=== PATIENT | male | born 1960 | race Caucasian/White ===

== ENCOUNTER 2017-07-19 18:36 | Emergency (ER) | payer OTHER, MEDICARE ==
[2017-07-19 18:36] VITALS: BMI 31.0
[2017-07-19] MEDS ORDERED: Aspirin 325 mg EC Tablets PO STA (19:15)
--- NOTE | 2017-07-19 19:15 | C.PDOC ---
History Of Present Illness 57 year old male non insulin dependent diabetic presents to the ED c/o intermittent, on and off chest pain that started on Wednesday. Patient is speaking in full sentences. Patient denies fever, chills, nausea, vomit, SOB, palpitations. Time Seen by Provider: 07/19/17 19:14 Chief Complaint (Nursing): Chest Pain History Per: Patient History/Exam Limitations: no limitations Onset/Duration Of Symptoms: Days, Intermittent Episodes Current Symptoms Are (Timing): Still Present Severity: Mild Pain Scale Rating Of: 2 Quality: Dull Associated Symptoms: denies: Nausea, Dyspnea, Diaphoresis, Syncope Modifying Factors: None Exacerbating Factors: None Alleviating Factors: None Recent travel outside of the [place]: No Additional History Per: Patient Past Medical History Reviewed: Historical Data, Nursing Documentation, Vital Signs Vital Signs: Last Vital Signs Temp 99.3 F 07/19/17 18:42 Pulse 86 07/19/17 19:32 Resp 16 07/19/17 18:42 BP 175/84 H 07/19/17 18:42 Pulse Ox 99 07/19/17 20:03 - Medical History PMH: Diabetes (non insulin dependent ), HTN, Hypercholesterolemia, Peripheral Edema, Chronic Kidney Disease Surgical History: CABG - [facility] Procedures CYSTOSCOPY NEC (05/09/14) RETROGRADE PYELOGRAM (05/09/14) Family History: States: No Known Family Hx - Social History Hx Alcohol Use: Yes Hx Substance Use: No - Immunization History Hx Tetanus Toxoid Vaccination: No Hx Influenza Vaccination: No Hx Pneumococcal Vaccination: No Review Of Systems Constitutional: Negative for: Fever, Chills Cardiovascular: Positive for: Chest Pain. Negative for: Palpitations Respiratory: Negative for: Shortness of Breath Gastrointestinal: Negative for: Nausea, Vomiting Genitourinary: Negative for: Dysuria Musculoskeletal: Negative for: Back Pain Skin: Negative for: Rash Neurological: Negative for: Headache, Dizziness Psych: Negative for: Anxiety Physical Exam - Physical Exam Appears: Non-toxic, No Acute Distress, Other (obese) Skin: Warm, Dry Head: Normacephalic Eye(s): bilateral: Normal Inspection Oral Mucosa: Moist Neck: Supple Chest: Symmetrical, Other (cabg) Cardiovascular: Rhythm Regular Respiratory: No Rales, No Rhonchi, No Wheezing Gastrointestinal/Abdominal: Soft, No Tenderness, No Guarding, No Rebound, Other (obese) Back: Normal Inspection Extremity: No Tenderness, Pedal Edema (trace bilateral), Capillary Refill (< 2 seconds) Extremity: Bilateral: Atraumatic, Normal Color And Temperature, Normal ROM Pulses: Left Dorsalis Pedis: Normal, Right Dorsalis Pedis: Normal Neurological/Psych: Oriented x3, Normal Speech Gait: Steady ED Course And Treatment - Laboratory Results Result Diagrams: 07/19/17 19:24 07/19/17 19:24 ECG: Interpreted By Me, Viewed By Me ECG Rhythm: Sinus Rhythm (103), Nonspecific Changes (lae) O2 Sat by Pulse Oximetry: 99 (ON RA) Pulse Ox Interpretation: Normal - Radiology CXR Interpretation: No: Infiltrates, Fracture, Pnemothorax, Other (cabg) Progress Note: Plan: - EKG. - Labs. - CXR. - Ecotrin 325 mg PO. - UA Against Medical Advice - AMA Patient Left Against Medical Advice: The patient declines admission to the hospital and wishes to leave the Emergency Department. This action is against my medical advice. This decision was made with informed refusal. The patient was told that admission to the hospital is necessary. Explanation of the reasons why were discussed. The risks of leaving were explained to the patient and include, but are not limited to, worsening of known or currently unknown conditions, permanent disability and from undiagnosed or untreated conditions. The patient has the capacity to make this informed decision and understands my explanation of the current medical problem and risks of leaving. The patient voluntarily accepts these risks and signed an AMA form documenting our conversation. The patient was given the opportunity to ask questions and reconsider. The patient was encouraged to return to the Emergency Department at any time for further care. Disposition Counseled Patient/Family Regarding: Studies Performed, Diagnosis, Need For Followup - Disposition Referrals: Helene Green MD [Medical Doctor] - Disposition: AGAINST MEDICAL ADVICE Disposition Time: 19:14 Condition: FAIR Additional Instructions: Please return if symptoms recur Instructions: Chest Pain (DC) Forms: [employer] (Croatian) - Clinical Impression Clinical Impression: Chest pain - Scribe Statement The provider has reviewed the documentation as recorded by the Scribe Don Callejas All medical record entries made by the Scribe were at my direction and personally dictated by me. I have reviewed the chart and agree that the record accurately reflects my personal performance of the history, physical exam, medical decision making, and the department course for this patient. I have also personally directed, reviewed, and agree with the discharge instructions and disposition.
[2017-07-19] MEDS ORDERED: Aspirin 325 mg EC Tablets PO ONE (19:22)
[2017-07-19 19:27] LABS: BASO # 0.1 K/uL (0.0-0.2); BASO % 1.4 % (0.0-2.0); EOS # 0.1 K/uL (0.0-0.7); EOS % 2.2 % (0.0-4.0); HEMOGLOBIN 14.9 g/dL (12.0-18.0); LYMPH # 1.3 K/uL (1.0-4.3); LYMPH % 25.6 % (20.0-40.0); MEAN CORPUSCULAR HEMOGLOBIN 38.3 pg (27.0-31.0); MEAN CORPUSCULAR HGB CONC 34.8 g/dL (33.0-37.0); MEAN PLATELET VOLUME 9.3 fL (7.2-11.7); MONO # 0.5 K/uL (0.0-0.8); MONO % 9.4 % (0.0-10.0); NEUT # 3.2 K/uL (1.8-7.0); NEUT % 61.4 % (50.0-75.0); NRBC % 0.1 % (0.0-2.0); RBC 3.89 Mil/uL (4.40-5.90); RED CELL DISTRIBUTION WIDTH 14.3 % (11.5-14.5); WHITE BLOOD COUNT 5.2 K/uL (4.8-10.8)
[2017-07-19 19:31] LABS: MEAN CELL VOLUME 110.1 fL (80.0-94.0)
[2017-07-19 19:42] LABS: ALBUMIN 4.1 g/dL (3.5-5.0); ALT/SGPT 48 U/L (21-72); AST/SGOT 76 U/L (17-59); BLOOD UREA NITROGEN 19 mg/dL (9-20); GFR AFRICAN-AMERICAN > 60; GFR NON-AFRICAN AMERICAN > 60
[2017-07-19 19:51] LABS: B-TYPE NATRIURETIC PEPTIDE 367 pg/mL (0-900)
[2017-07-19 19:55] LABS: URINE BACTERIA OCC (<OCC); URINE BILIRUBIN NEGATIVE (NEGATIVE); URINE CLARITY Clear (Clear); URINE COLOR Yellow (YELLOW); URINE GLUCOSE (UA) 1+ mg/dL (Normal); URINE LEUKOCYTE ESTERASE NEG Leu/uL (Negative); URINE PROTEIN 3+ mg/dL (NEGATIVE); URINE UROBILINOGEN NORMAL mg/dL (0.2-1.0)
[2017-07-19 19:57] LABS: URINE BLOOD 1+ (NEGATIVE)
[2017-07-19 20:07] LABS: PROTHROMBIN TIME 11.3 SECONDS (9.7-12.2)
[2017-07-19 21:08] VITALS: BP 166/87; PULSE 93; RESP 20; TEMP 98; O2SAT 97
--- NOTE | 2017-07-20 09:19 | RAD ---
Chest x-ray single frontal view History: Chest pain. Comparison: None available. Findings: Status post median sternotomy and CABG. No focal infiltrate or effusion. Top normal heart size. Biapical pleural thickening with upper lobe granulomatous changes. Right hilar prominence. Impression Status post median sternotomy and CABG. No focal infiltrate or effusion. Top normal heart size. Biapical pleural thickening with upper lobe granulomatous changes. Right hilar prominence.
--- NOTE | 2017-07-23 05:37 | CARD ---
APPROVED REPORT EKG Measurement Heart [id number] CT [id number] <Conclusion> Sinus tachycardia Left atrial enlargement Nonspecific ST abnormality Abnormal ECG
== END 2017-07-19 21:08 | disposition left against medical advice (07) ==
LOC: C.ER 18:36
DX: R07.9 Chest pain, unspecified (principal)

== ENCOUNTER 2017-12-28 11:31 | Inpatient (IN) | payer OTHER, MEDICARE ==
[2017-12-28 11:31] VITALS: BMI 31.0
--- NOTE | 2017-12-28 13:20 | C.PDOC ---
History Of Present Illness 57 yo male, hx of dm, htn, hld, presents wtih "high blood sugar", subjective dyspnea, and body aches on and off x 1 week. no fevers, no cough, no cp. no other complaints. Time Seen by Provider: 12/28/17 13:01 Chief Complaint (Nursing): Shortness Of Breath Past Medical History Reviewed: Historical Data, Nursing Documentation, Vital Signs Vital Signs: Last Vital Signs Temp 97.7 F 12/28/17 11:46 Pulse 110 H 12/28/17 11:46 Resp 22 12/28/17 11:46 BP 104/70 12/28/17 11:46 Pulse Ox 10 L 12/28/17 11:46 - Medical History PMH: Diabetes (non insulin dependent ), HTN, Hypercholesterolemia, Peripheral Edema, Chronic Kidney Disease Surgical History: CABG - [facility] Procedures CYSTOSCOPY NEC (05/09/14) RETROGRADE PYELOGRAM (05/09/14) Family History: States: Unknown Family Hx - Social History Hx Alcohol Use: Yes Hx Substance Use: No - Immunization History Hx Tetanus Toxoid Vaccination: No Hx Influenza Vaccination: No Hx Pneumococcal Vaccination: No Review Of Systems Except As Marked, All Systems Reviewed And Found Negative. Respiratory: Positive for: Shortness of Breath Physical Exam - Physical Exam Appears: Well, No Acute Distress, Other (speaking full sentneces in nad. ) Skin: Normal Color, Warm, Dry Eye(s): bilateral: Normal Inspection, PERRL, EOMI Nose: Normal Throat: Normal Neck: Normal Cardiovascular: Rhythm Regular Respiratory: Normal Breath Sounds Gastrointestinal/Abdominal: Normal Exam, Soft, No Tenderness, No Guarding, No Rebound Back: Normal Inspection Extremity: Normal ROM ED Course And Treatment - Laboratory Results Result Diagrams: 12/28/17 15:27 12/28/17 14:42 ECG: Interpreted By Me, Viewed By Me ECG Rhythm: Sinus Rhythm Interpretation Of ECG: nonspecific T wave changes Rate From EC O2 Sat by Pulse Oximetry: 100 (RA) Pulse Ox Interpretation: Normal Critical Care Time - Critical Care Note Total Time (in mins): 45 Documented critical care: time excludes all time spent performing seperately billable procedures. Medical Decision Making Medical Decision Making: ro dka, pe, cardiac, chf, metabolci pt noted to be in dka. insuling drip started ivf iniated. accepted icu. cta pending Disposition - Disposition Disposition: HOSPITALIZED Disposition Time: 13:00 Condition: CRITICAL - Clinical Impression Clinical Impression: DKA (diabetic ketoacidoses), Dyspnea Decision To Admit - Pt Status Changed To: Hospital Disposition Of: Inpatient - Admit Certification Admit to Inpatient:: After my assessment, the patient will require hospitalization for at least two midnights. This is because of the severity of symptoms shown, intensity of services needed, and/or the medical risk in this patient being treated as an outpatient. - InPatient: Physician Admission Certification: I certify that this patient requires 2 or more midnights of care for the following reason:: needs insulin drip - . Bed Request Type: ICU Admitting Physician: Eugenia Du Patient Diagnosis: DKA (diabetic ketoacidoses), Dyspnea
--- NOTE | 2017-12-28 14:00 | RAD ---
Date of service: 12/28/2017 HISTORY: chest pain COMPARISON: Comparison made with chest radiograph 07/19/2017 FINDINGS: LUNGS: Minimal scarring left medial lung base. Mild biapical pleural thickening with what could represent small of bleb right lung apex. PLEURA: No significant pleural effusion identified, no pneumothorax apparent. CARDIOVASCULAR: Suspect minimal aortic atherosclerotic calcification present. Anatomy wires and CABG clips again noted. Heart size normal.. No pulmonary vascular congestion. OSSEOUS STRUCTURES: No significant abnormalities. VISUALIZED UPPER ABDOMEN: Normal. OTHER FINDINGS: None. IMPRESSION: Minimal scarring left lung base. Mild biapical pleural thickening with what could represent small bleb right lung apex
[2017-12-28 15:09] LABS: B-TYPE NATRIURETIC PEPTIDE 841 pg/mL (0-900)
[2017-12-28 15:18] LABS: ALB/GLOB RATIO 1.3 (1.0-2.1); ALT/SGPT 47 U/L (21-72); AST/SGOT 72 U/L (17-59); BLOOD UREA NITROGEN 29 mg/dL (9-20); CALCIUM 9.5 mg/dl (8.6-10.4); GFR NON-AFRICAN AMERICAN > 60
[2017-12-28] MEDS ORDERED: Sodium Chloride 0.9% 500 ML IV ONE (15:30)
[2017-12-28] MEDS ORDERED: (Novolin R) Insulin Human Regular 100 units/ml vial IVP STA (15:30)
[2017-12-28 15:37] LABS: BASO # 0.1 K/uL (0.0-0.2); BASO % 0.8 % (0.0-2.0); EOS % 0.3 % (0.0-4.0); LYMPH # 0.6 K/uL (1.0-4.3); LYMPH % 9.1 % (20.0-40.0); MEAN CORPUSCULAR HEMOGLOBIN 41.2 pg (27.0-31.0); MEAN CORPUSCULAR HGB CONC 33.7 g/dL (33.0-37.0); MEAN PLATELET VOLUME 9.3 fL (7.2-11.7); MONO # 0.7 K/uL (0.0-0.8); MONO % 10.3 % (0.0-10.0); NEUT # 5.5 K/uL (1.8-7.0); NEUT % 79.5 % (50.0-75.0); RBC 2.92 Mil/uL (4.40-5.90); RED CELL DISTRIBUTION WIDTH 15.3 % (11.5-14.5)
[2017-12-28 15:40] LABS: MEAN CELL VOLUME 122.4 fL (80.0-94.0); PLATELET COUNT 106 K/uL (130-400)
[2017-12-28 15:47] LABS: INR 1.2; PROTHROMBIN TIME 13.1 SECONDS (9.7-12.2)
[2017-12-28 16:23] LABS: ANISOCYTOSIS SLIGHT; BASOPHIL 1 % (0-2); HYPOCHROMIC SLIGHT; LYMPHOCYTE 9 % (20-40); MONOCYTE 7 % (0-10); NEUTROPHIL 83 % (50-75); PLATELET ESTIMATE SLIGHTLY DECREASED (NORMAL); POIKILOCYTOSIS SLIGHT; TOTAL CELLS COUNTED 100
[2017-12-28 16:24] LABS: TEARDROP CELLS SLIGHT
[2017-12-28 16:27] LABS: VENOUS BLOOD GAS BASE EXCESS -13.8 mmol/L (0.0-2.0); VENOUS BLOOD GAS PCO2 27 mmHg (40-60); VENOUS BLOOD GAS PO2 32 mm/Hg (30-55); VENOUS BLOOD PH 7.25 (7.32-7.43)
[2017-12-28] MEDS ORDERED: Insulin Human Regular 100 UNIT in Sodium Chloride 0.9% 99 ML IV SCH ×2 (16:30→18:00)
[2017-12-28] MEDS ORDERED: Sodium Chloride 0.9% 1,000 ML IV ONE (16:36)
[2017-12-28] MEDS ORDERED: (Novolin R) Insulin Human Regular 100 units/ml vial ONE (16:47)
[2017-12-28] MEDS ORDERED: Iodixanol 320 MG/ML 100 ML BOTTLE IV ONE (17:55)
[2017-12-28] MEDS ORDERED: Dextrose 50% SYRINGE Inj (50 ml) IV PRN (18:20)
[2017-12-28] MEDS ORDERED: Glucagon Recombinant 1 mg Inj IM PRN (18:20)
--- NOTE | 2017-12-28 18:23 | CP.PCM.HP ---
Past Patient History - Past Medical History & Family History Past Medical History?: Yes - Past Social History Smoking Status: Heavy Smoker > 10 Cigarettes Daily - CARDIAC Hx Hypercholesterolemia: Yes Hx Hypertension: Yes Hx Peripheral Edema: Yes - PULMONARY Hx Respiratory Disorders: No - NEUROLOGICAL Hx Neurological Disorder: No - HEENT Hx HEENT Problems: No - RENAL Hx Chronic Kidney Disease: Yes - ENDOCRINE/METABOLIC Hx Endocrine Disorders: Yes Hx Diabetes Mellitus Type 2: Yes - HEMATOLOGICAL/ONCOLOGICAL Hx Blood Disorders: No - INTEGUMENTARY Hx Dermatological Problems: Yes Other/Comment: DISCOLORED SPOTS ARM LEGS - MUSCULOSKELETAL/RHEUMATOLOGICAL Hx Musculoskeletal Disorders: No - GASTROINTESTINAL Hx Gastrointestinal Disorders: No - GENITOURINARY/GYNECOLOGICAL Hx Genitourinary Disorders: Yes Hx Hematuria: Yes - PSYCHIATRIC Hx Substance Use: No - SURGICAL HISTORY Hx Coronary Artery Bypass Graft: Yes - ANESTHESIA Hx Anesthesia: Yes Hx Anesthesia Reactions: No Hx Malignant Hyperthermia: No Meds Allergies/Adverse Reactions: Allergies Allergy/AdvReac Type Severity Reaction Status Date / Time No Known Allergies Allergy Verified 07/19/17 18:44 Physical Exam - Constitutional Appears: Well - Head Exam Head Exam: ATRAUMATIC, NORMAL INSPECTION, NORMOCEPHALIC - Eye Exam Eye Exam: EOMI, Normal appearance, PERRL Pupil Exam: NORMAL ACCOMODATION, PERRL - ENT Exam ENT Exam: Mucous Membranes Moist, Normal Exam - Neck Exam Neck exam: Positive for: Normal Inspection - Respiratory Exam Respiratory Exam: Decreased Breath Sounds - Cardiovascular Exam Cardiovascular Exam: REGULAR RHYTHM, +S1, +S2 - GI/Abdominal Exam GI & Abdominal Exam: Diminished Bowel Sounds, Soft - Rectal Exam Rectal Exam: Deferred Results - Vital Signs Recent Vital Signs: Last Vital Signs Temp 97.7 F 12/28/17 11:46 Pulse 110 H 12/28/17 11:46 Resp 16 12/28/17 15:54 BP 104/70 12/28/17 11:46 Pulse Ox 10 L 12/28/17 13:20 - Labs Result Diagrams: 12/28/17 15:27 12/28/17 14:42 Labs: Laboratory Results - last 24 hr 12/28/17 12/28/17 12/28/17 14:42 15:27 15:27 WBC 7.0 RBC 2.92 L Hgb 12.0 D Hct 35.7 MCV 122.4 H D MCH 41.2 H MCHC 33.7 RDW 15.3 H Plt Count 106 L D MPV 9.3 Neut % (Auto) 79.5 H Lymph % (Auto) 9.1 L Bland % (Auto) 10.3 H Eos % (Auto) 0.3 Baso % (Auto) 0.8 Neut # (Auto) 5.5 Lymph # (Auto) 0.6 L Bland # (Auto) 0.7 Eos # (Auto) 0.0 Baso # (Auto) 0.1 Neutrophils % (Manual) 83 H Lymphocytes % (Manual) 9 L Monocytes % (Manual) 7 Basophils % (Manual) 1 Platelet Estimate Slightly decreased L Hypochromasia (manual) Slight Poikilocytosis (manual Slight Anisocytosis (manual) Slight Tear Drop Cells Slight PT 13.1 H INR 1.2 APTT 24 D-Dimer, Quantitative 491 H pO2 VBG pH VBG pCO2 VBG HCO3 VBG Total CO2 VBG O2 Sat (Calc) VBG Base Excess VBG Potassium Glucose Lactate FiO2 Crit Value Called To Crit Value Called By Crit Value Read Back Blood Gas Notified Time Sodium 135 Potassium 5.2 Chloride 95 L Carbon Dioxide 13 L Anion Gap 32 H BUN 29 H Creatinine 0.9 Est GFR ( Amer) > 60 Est GFR (Non-Af Amer) > 60 Random Glucose 424 H* D Calcium 9.5 Total Bilirubin 0.6 AST 72 H ALT 47 Alkaline Phosphatase 98 Troponin I < 0.0120 NT-Pro-B Natriuret Pep 841 Total Protein 7.2 Albumin 4.0 Globulin 3.2 Albumin/Globulin Ratio 1.3 Venous Blood Potassium B-Hydroxybutyrate 12/28/17 12/28/17 16:17 16:20 WBC RBC Hgb Hct MCV MCH MCHC RDW Plt Count MPV Neut % (Auto) Lymph % (Auto) Bland % (Auto) Eos % (Auto) Baso % (Auto) Neut # (Auto) Lymph # (Auto) Bland # (Auto) Eos # (Auto) Baso # (Auto) Neutrophils % (Manual) Lymphocytes % (Manual) Monocytes % (Manual) Basophils % (Manual) Platelet Estimate Hypochromasia (manual) Poikilocytosis (manual Anisocytosis (manual) Tear Drop Cells PT INR APTT D-Dimer, Quantitative pO2 32 VBG pH 7.25 L VBG pCO2 27 L VBG HCO3 12.9 VBG Total CO2 12.6 L VBG O2 Sat (Calc) 62.6 VBG Base Excess -13.8 L VBG Potassium 4.4 Glucose 415 H* Lactate 1.8 FiO2 21.0 Crit Value Called To Dr troy Crit Value Called By [facility] Crit Value Read Back Y Blood Gas Notified Time 1627 Sodium 136.0 Potassium Chloride 97.0 L Carbon Dioxide Anion Gap BUN Creatinine Est GFR ( Amer) Est GFR (Non-Af Amer) Random Glucose Calcium Total Bilirubin AST ALT Alkaline Phosphatase Troponin I NT-Pro-B Natriuret Pep Total Protein Albumin Globulin Albumin/Globulin Ratio Venous Blood Potassium 4.4 B-Hydroxybutyrate 7.74 H
--- NOTE | 2017-12-28 18:45 | CP.PCM.CON ---
<Megan Booker - Last Filed: 12/28/17 19:03> History of Present Illness - History of Present Illness History of Present Illness: PGY1 Critical Care Consult Note for Dr. Noel Reason for Consult: DKA This is a 57 year old male with PMH of diabetes mellitus, HTN, HLD who presents to [facility] on 12/28 with elevated blood glucose level, shortness of breath, and body aches x1 week. Patient admits to having increased frequency to urinate and more thirst. Patient also admits to taking metformin daily, but admits to inconsistently checking blood glucose at home. Patient otherwise denies fever, chills, cough, and/or chest pain. While in ED, labs were cons istent with diabetic ketoacidosis: ketones =7.74, blood glucose = 415, pH =7.25, pCO2 =27, HCO3=13 and anion gap =32. Review of Systems - Review of Systems All systems: reviewed and no additional remarkable complaints except - Constitutional Constitutional: As Per HPI - EENT Eyes: As Per HPI - Cardiovascular Cardiovascular: As Per HPI - Respiratory Respiratory: As Per HPI - Gastrointestinal Gastrointestinal: As Per HPI - Genitourinary Genitourinary: As Per HPI - Musculoskeletal Musculoskeletal: As Per HPI Past Patient History - Past Medical History & Family History Past Medical History?: Yes - Past Social History Smoking Status: Heavy Smoker > 10 Cigarettes Daily - CARDIAC Hx Hypercholesterolemia: Yes Hx Hypertension: Yes Hx Peripheral Edema: Yes - PULMONARY Hx Respiratory Disorders: No - NEUROLOGICAL Hx Neurological Disorder: No - HEENT Hx HEENT Problems: No - RENAL Hx Chronic Kidney Disease: Yes - ENDOCRINE/METABOLIC Hx Endocrine Disorders: Yes Hx Diabetes Mellitus Type 2: Yes - HEMATOLOGICAL/ONCOLOGICAL Hx Blood Disorders: No - INTEGUMENTARY Hx Dermatological Problems: Yes Other/Comment: DISCOLORED SPOTS ARM LEGS - MUSCULOSKELETAL/RHEUMATOLOGICAL Hx Musculoskeletal Disorders: No - GASTROINTESTINAL Hx Gastrointestinal Disorders: No - GENITOURINARY/GYNECOLOGICAL Hx Genitourinary Disorders: Yes Hx Hematuria: Yes - PSYCHIATRIC Hx Substance Use: No - SURGICAL HISTORY Hx Coronary Artery Bypass Graft: Yes - ANESTHESIA Hx Anesthesia: Yes Hx Anesthesia Reactions: No Hx Malignant Hyperthermia: No Meds Allergies/Adverse Reactions: Allergies Allergy/AdvReac Type Severity Reaction Status Date / Time No Known Allergies Allergy Verified 07/19/17 18:44 - Medications Medications: Current Medications Dextrose (Dextrose 50% Inj) 0 ml IV STAT PRN; Protocol PRN Reason: Hypoglycemia Protocol Dextrose (Glutose 15) 0 gm PO ONCE PRN; Protocol PRN Reason: Hypoglycemia Protocol Glucagon (Glucagen Diagnostic Kit) 0 mg IM STAT PRN; Protocol PRN Reason: Hypoglycemia Protocol Insulin Human Regular 100 unit (/ Sodium Chloride) 100 mls @ 8 mls/hr IV .[id number] MELITON; Protocol Last Admin: 12/28/17 18:07 Dose: 8 unit/hr, 8 mls/hr Potassium Chloride 20 meq/ (Sodium Chloride) 1,010 mls @ 150 mls/hr IV .Q6H44M [facility] Dextrose (Dextrose 5% In Water 1000 Ml) 1,000 mls @ 0 mls/hr IV .Q0M PRN; Protocol PRN Reason: Hypoglycemia Protocol Physical Exam - Head Exam Head Exam: ATRAUMATIC, NORMAL INSPECTION, NORMOCEPHALIC - Eye Exam Eye Exam: EOMI, Normal appearance Pupil Exam: NORMAL ACCOMODATION - ENT Exam ENT Exam: Mucous Membranes Dry - Neck Exam Neck exam: Positive for: Normal Inspection. Negative for: Tenderness, Thyromegaly - Respiratory Exam Respiratory Exam: Clear to Auscultation Bilateral, NORMAL BREATHING PATTERN - Cardiovascular Exam Cardiovascular Exam: RRR, +S1, +S2 - GI/Abdominal Exam GI & Abdominal Exam: Normal Bowel Sounds, Soft. absent: Firm, Guarding, Mass, Rebound, Rigid, Tenderness - Extremities Exam Extremities exam: Positive for: normal capillary refill, normal inspection, pedal pulses present. Negative for: calf tenderness, joint swelling, pedal edema - Back Exam Back exam: NORMAL INSPECTION - Neurological Exam Neurological exam: Alert, CN II-XII Intact, Oriented x3 - Psychiatric Exam Psychiatric exam: Normal Affect, Normal Mood - Skin Skin Exam: Dry, Intact, Normal Color Results - Vital Signs Recent Vital Signs: Last Vital Signs Temp 97.7 F 12/28/17 11:46 Pulse 110 H 12/28/17 11:46 Resp 16 12/28/17 15:54 BP 104/70 12/28/17 11:46 Pulse Ox 10 L 12/28/17 13:20 - Labs Result Diagrams: 12/28/17 15:27 12/28/17 14:42 Labs: Laboratory Results - last 24 hr 12/28/17 12/28/17 12/28/17 14:42 15:27 15:27 WBC 7.0 RBC 2.92 L Hgb 12.0 D Hct 35.7 MCV 122.4 H D MCH 41.2 H MCHC 33.7 RDW 15.3 H Plt Count 106 L D MPV 9.3 Neut % (Auto) 79.5 H Lymph % (Auto) 9.1 L Shoshone % (Auto) 10.3 H Eos % (Auto) 0.3 Baso % (Auto) 0.8 Neut # (Auto) 5.5 Lymph # (Auto) 0.6 L [place] # (Auto) 0.7 Eos # (Auto) 0.0 Baso # (Auto) 0.1 Neutrophils % (Manual) 83 H Lymphocytes % (Manual) 9 L Monocytes % (Manual) 7 Basophils % (Manual) 1 Platelet Estimate Slightly decreased L Hypochromasia (manual) Slight Poikilocytosis (manual Slight Anisocytosis (manual) Slight Tear Drop Cells Slight PT 13.1 H INR 1.2 APTT 24 D-Dimer, Quantitative 491 H pO2 VBG pH VBG pCO2 VBG HCO3 VBG Total CO2 VBG O2 Sat (Calc) VBG Base Excess VBG Potassium Glucose Lactate FiO2 Crit Value Called To Crit Value Called By Crit Value Read Back Blood Gas Notified Time Sodium 135 Potassium 5.2 Chloride 95 L Carbon Dioxide 13 L Anion Gap 32 H BUN 29 H Creatinine 0.9 Est GFR ( Amer) > 60 Est GFR (Non-Af Amer) > 60 Random Glucose 424 H* D Calcium 9.5 Total Bilirubin 0.6 AST 72 H ALT 47 Alkaline Phosphatase 98 Troponin I < 0.0120 NT-Pro-B Natriuret Pep 841 Total Protein 7.2 Albumin 4.0 Globulin 3.2 Albumin/Globulin Ratio 1.3 Venous Blood Potassium B-Hydroxybutyrate 12/28/17 12/28/17 16:17 16:20 WBC RBC Hgb Hct MCV MCH MCHC RDW Plt Count MPV Neut % (Auto) Lymph % (Auto) Shoshone % (Auto) Eos % (Auto) Baso % (Auto) Neut # (Auto) Lymph # (Auto) Shoshone # (Auto) Eos # (Auto) Baso # (Auto) Neutrophils % (Manual) Lymphocytes % (Manual) Monocytes % (Manual) Basophils % (Manual) Platelet Estimate Hypochromasia (manual) Poikilocytosis (manual Anisocytosis (manual) Tear Drop Cells PT INR APTT D-Dimer, Quantitative pO2 32 VBG pH 7.25 L VBG pCO2 27 L VBG HCO3 12.9 VBG Total CO2 12.6 L VBG O2 Sat (Calc) 62.6 VBG Base Excess -13.8 L VBG Potassium 4.4 Glucose 415 H* Lactate 1.8 FiO2 21.0 Crit Value Called To Dr troy Crit Value Called By [facility], [place], operated [facility] Crit Value Read Back Y Blood Gas Notified Time 1627 Sodium 136.0 Potassium Chloride 97.0 L Carbon Dioxide Anion Gap BUN Creatinine Est GFR ( Amer) Est GFR (Non-Af Amer) Random Glucose Calcium Total Bilirubin AST ALT Alkaline Phosphatase Troponin I NT-Pro-B Natriuret Pep Total Protein Albumin Globulin Albumin/Globulin Ratio Venous Blood Potassium 4.4 B-Hydroxybutyrate 7.74 H Assessment & Plan - Assessment and Plan (Free Text) Assessment: PGY1 Critical Care Consult Note for Dr. Noel This is a 57 year old male with PMH of diabetes mellitus, HTN, HLD who presents to [facility] on 12/28 with elevated blood glucose level, shortness of raegan th, and body aches x1 week. Patient otherwise denies fever, chills, cough, and/or chest pain. While in ED, patient was found to be positive for ketones =7.74, blood glucose = 415, pH =7.25, pCO2 =27, HCO3=13 and anion gap =32. Neuro: - No acute issues - Neuro checks CV: - No acute issues - Metal Furrer Pulm: - No acute issues GI: - No acute issues - NPO Renal/ Endo - DKA with high anion gap metabolic acidosis - BMP Q4H x24 hours - Titratable Insulin drip started with potassium supplement - Monitor blood glucose accu check - IVF Heme: - No acute issues - Monitor H/H ID: - No acute issues - Monitor CBC with Diff Patient seen and case discussed in detail with Dr. Noel <Tommy Noel - Last Filed: 12/28/17 19:25> Meds - Medications Medications: Current Medications Dextrose (Dextrose 50% Inj) 0 ml IV STAT PRN; Protocol PRN Reason: Hypoglycemia Protocol Dextrose (Glutose 15) 0 gm PO ONCE PRN; Protocol PRN Reason: Hypoglycemia Protocol Glucagon (Glucagen Diagnostic Kit) 0 mg IM STAT PRN; Protocol PRN Reason: Hypoglycemia Protocol Insulin Human Regular 100 unit (/ Sodium Chloride) 100 mls @ 8 mls/hr IV .[id number] [facility]; Protocol Last Admin: 12/28/17 18:07 Dose: 8 unit/hr, 8 mls/hr Potassium Chloride 20 meq/ (Sodium Chloride) 1,010 mls @ 150 mls/hr IV .Q6H44M [facility] Dextrose (Dextrose 5% In Water 1000 Ml) 1,000 mls @ 0 mls/hr IV .Q0M PRN; Protocol PRN Reason: Hypoglycemia Protocol Results - Vital Signs Recent Vital Signs: Last Vital Signs Temp 97.7 F 12/28/17 11:46 Pulse 110 H 12/28/17 11:46 Resp 16 12/28/17 15:54 BP 104/70 12/28/17 11:46 Pulse Ox 100 12/28/17 18:45 - Labs Result Diagrams: 12/28/17 15:27 12/28/17 14:42 Labs: Laboratory Results - last 24 hr 12/28/17 12/28/17 12/28/17 14:42 15:27 15:27 WBC 7.0 RBC 2.92 L Hgb 12.0 D Hct 35.7 MCV 122.4 H D MCH 41.2 H MCHC 33.7 RDW 15.3 H Plt Count 106 L D MPV 9.3 Neut % (Auto) 79.5 H Lymph % (Auto) 9.1 L [place] % (Auto) 10.3 H Eos % (Auto) 0.3 Baso % (Auto) 0.8 Neut # (Auto) 5.5 Lymph # (Auto) 0.6 L [place] # (Auto) 0.7 Eos # (Auto) 0.0 Baso # (Auto) 0.1 Neutrophils % (Manual) 83 H Lymphocytes % (Manual) 9 L Monocytes % (Manual) 7 Basophils % (Manual) 1 Platelet Estimate Slightly decreased L Hypochromasia (manual) Slight Poikilocytosis (manual Slight Anisocytosis (manual) Slight Tear Drop Cells Slight PT 13.1 H INR 1.2 APTT 24 D-Dimer, Quantitative 491 H pO2 VBG pH VBG pCO2 VBG HCO3 VBG Total CO2 VBG O2 Sat (Calc) VBG Base Excess VBG Potassium Glucose Lactate FiO2 Crit Value Called To Crit Value Called By Crit Value Read Back Blood Gas Notified Time Sodium 135 Potassium 5.2 Chloride 95 L Carbon Dioxide 13 L Anion Gap 32 H BUN 29 H Creatinine 0.9 Est GFR ( Amer) > 60 Est GFR (Non-Af Amer) > 60 POC Glucose (mg/dL) Random Glucose 424 H* D Calcium 9.5 Total Bilirubin 0.6 AST 72 H ALT 47 Alkaline Phosphatase 98 Troponin I < 0.0120 NT-Pro-B Natriuret Pep 841 Total Protein 7.2 Albumin 4.0 Globulin 3.2 Albumin/Globulin Ratio 1.3 Venous Blood Potassium B-Hydroxybutyrate 12/28/17 12/28/17 12/28/17 16:17 16:20 19:00 WBC RBC Hgb Hct MCV MCH MCHC RDW Plt Count MPV Neut % (Auto) Lymph % (Auto) [place]oshone % (Auto) Eos % (Auto) Baso % (Auto) Neut # (Auto) Lymph # (Auto) [place]oshone # (Auto) Eos # (Auto) Baso # (Auto) Neutrophils % (Manual) Lymphocytes % (Manual) Monocytes % (Manual) Basophils % (Manual) Platelet Estimate Hypochromasia (manual) Poikilocytosis (manual Anisocytosis (manual) Tear Drop Cells PT INR APTT D-Dimer, Quantitative pO2 32 VBG pH 7.25 L VBG pCO2 27 L VBG HCO3 12.9 VBG Total CO2 12.6 L VBG O2 Sat (Calc) 62.6 VBG Base Excess -13.8 L VBG Potassium 4.4 Glucose 415 H* Lactate 1.8 FiO2 21.0 Crit Value Called To Dr troy Crit Value Called By [facility], [place], operated [facility] Crit Value Read Back Y Blood Gas Notified Time 1627 Sodium 136.0 Potassium Chloride 97.0 L Carbon Dioxide Anion Gap BUN Creatinine Est GFR ( Amer) Est GFR (Non-Af Amer) POC Glucose (mg/dL) 228 H Random Glucose Calcium Total Bilirubin AST ALT Alkaline Phosphatase Troponin I NT-Pro-B Natriuret Pep Total Protein Albumin Globulin Albumin/Globulin Ratio Venous Blood Potassium 4.4 B-Hydroxybutyrate 7.74 H Attending/Attestation - Attestation I have personally seen and examined this patient.: Yes I have fully participated in the care of the patient.: Yes I have reviewed all pertinent clinical information: Yes Notes (Text): 12/28/17 19:23 I have seen and examined the patient. Medical records, lab studies, and imaging were reviewed by me and a management plan was formulated on multidisciplinary rounds with resident Dr. Booker. I agree with their documented assessment and plan. Pt is in DKA s/p recent illness at home, will start insulin drip, bmp's q4h, NS+20KCL@150. Critical Care Time 35 minutes. Multi-disciplinary rounds were performed with house staff, nursing, speech the rapy, respiratory therapy, pharmacy and nutrition with integrated input from the primary team/attending and other consulting services. The documented time is cumulative and includes review of patient data/exams/labs/chart review and examination of the patient on rounds and throughout the day; time is exclusive of any procedures or teaching time.
[2017-12-28] MEDS ORDERED: Potassium Chloride 20 mEq 0 ML ONE (20:32)
[2017-12-28] MEDS: Potassium Chloride 20 MEQ in Dextrose 5%/0.45% NS 1,000 ML IV SCH (21:36)
[2017-12-28 22:49] LABS: BLOOD UREA NITROGEN 26 mg/dL (9-20); CALCIUM 9.1 mg/dl (8.6-10.4); GFR NON-AFRICAN AMERICAN > 60
[2017-12-29 02:35] LABS: BLOOD UREA NITROGEN 25 mg/dL (9-20); CALCIUM 8.8 mg/dl (8.6-10.4); GFR NON-AFRICAN AMERICAN > 60
[2017-12-29] MEDS: Potassium Chloride 20 MEQ in Dextrose 5%/0.45% NS 1,000 ML IV SCH (03:37)
--- NOTE | 2017-12-29 05:40 | CON ---
DATE: 12/28/2017 HISTORY OF PRESENT ILLNESS: This is a 57-year-old male with known history of type 2 diabetes and hypertension presenting here with generalized body weakness and still prevailing progressive shortness of breath and evaluated to be in diabetic ketoacidosis with marked hyperglycemic accelerations and has now been referred for diabetic evaluation and management. PAST MEDICAL HISTORY: As mentioned above; history of type 2 diabetes, currently on a combination of two oral hypoglycemic agents with glipizide given as 5 mg daily and metformin as 500 mg b.i.d., history of hypertension and dyslipidemia, history of diabetic retinopathy and polyneuropathy, history of coronary artery disease with previous coronary artery bypass graft surgery and underlying peripheral arterial vasculopathy. FAMILY HISTORY: Positive for diabetes and hypertension. SOCIAL HISTORY: The patient has a supportive family. No known substance use. REVIEW OF SYSTEMS: Admits to generalized body weakness with progressive bouts of dizziness and lightheadedness, worse on the day of admission; also admits to visual blurring with bifrontal headaches and marked easy fatigability and tiredness, admits to precordial chest pains with progressive shortness of breath initially on exertion and then at rest. His oral intake has been variable with nausea, dyspepsia, and vague upper abdominal pains, also admits to a variable oral intake with suboptimal meal portions in the last few days prior to admission, also admits to marked polyuria, nocturia, and polydipsia with lower extremity paresthesias. PHYSICAL EXAMINATION: GENERAL: An overweight male in no apparent distress. VITAL SIGNS: Blood pressure of 150/90, pulse 100 beats per minute and regular, temperature 98, respirations 20, height is 5 feet 9 inches, weight is 230 pounds. HEENT: Head is normocephalic, eyes anicteric with pink conjunctivae. Funduscopy not possible at this time. Ears, nose and throat, otherwise, normal. NECK: Supple. Thyroid gland is normal size, no carotid bruits or any cervical adenopathy. CARDIOPULMONARY: Some adynamic precordium, S1 and S2 are rapid and regular. LUNGS: Clear to auscultation. ABDOMEN: Flat, soft with positive bowel sounds. EXTREMITIES: No peripheral edema, pulses are +2 bilaterally. LABORATORY DATA: His chemistries initially showed a BUN of 29, sodium 135, potassium 5.2, chloride 95, CO2 is 13, glucose is 424, and creatinine is 0.9. His glucose levels range from 134 to 170 mg/dL. His latest CO2 is 17. ASSESSMENT: This is a 57-year-old male with uncontrolled and decompensated type 2 insulin-requiring diabetes, presented here with diabetic ketoacidosis and dehydration and prerenal azotemia with previous hyponatremia. He also has diabetic macrovascular complications of retinopathy and polyneuropathy with diabetic macrovascular complications of coronary artery disease with previous coronary artery bypass graft surgery and peripheral arterial disease and vasculopathy. PLAN OF MANAGEMENT: Concur with the current intensive insulin therapy with an insulin drip infusion as currently ordered and ongoing at this time. If his acidosis resolves with at least CO2 above 18 to 20 and closure of the anion gap, then we will switch him over to a more physiologic basal and bolus insulin-drug combination to optimize metabolic control. We will also continue the vigorous IV hydration at this time to replenish the lost fluids and electrolytes from the increased osmotic diuresis thereof. We will obtain a hemoglobin A1c to confirm he has been glycemic controlled, and baseline thyroid function studies and a lipid panel will be ordered. We will follow and advise accordingly. We will also initiate diabetic education to include insulin pump administration at this time and also dietary evaluation for nutritional counseling to include weight loss efforts and healthier food choice. We will follow. Calli Houston MD
[2017-12-29 07:06] LABS: BLOOD UREA NITROGEN 22 mg/dL (9-20); GFR NON-AFRICAN AMERICAN > 60
[2017-12-29 07:16] LABS: LDL CHOLESTEROL 60 mg/dL (0-129)
[2017-12-29 07:30] LABS: ALB/GLOB RATIO 1.2 (1.0-2.1); ALBUMIN 3.4 g/dL (3.5-5.0); ALT/SGPT 34 U/L (21-72); AST/SGOT 43 U/L (17-59); BLOOD UREA NITROGEN 22 mg/dL (9-20); GFR NON-AFRICAN AMERICAN > 60; HDL CHOLESTEROL 31 mg/dL (30-70)
[2017-12-29 10:02] LABS: BLOOD UREA NITROGEN 19 mg/dL (9-20); CALCIUM 8.5 mg/dl (8.6-10.4); GFR NON-AFRICAN AMERICAN > 60
[2017-12-29] MEDS ORDERED: Glucagon Recombinant 1 mg Inj IM PRN (10:35)
[2017-12-29] MEDS ORDERED: Dextrose 50% SYRINGE Inj (50 ml) IV PRN (10:35)
[2017-12-29] MEDS ORDERED: Potassium & Sodium Phosphate PO ONE (10:37)
[2017-12-29] MEDS ORDERED: (Lantus) Insulin Glargine, Recombinant SC ONE (11:00)
[2017-12-29] MEDS: Magnesium Sulfate 1 gm in D5W 1 GM/100 ML BAG IVPB SCH (11:14)
[2017-12-29 11:38] LABS: FOLATE 2.1 ng/mL
--- NOTE | 2017-12-29 12:19 | CARD ---
APPROVED REPORT Date of service: 12/28/2017 EKG Measurement Heart [id number] <Conclusion> Sinus rhythm with premature atrial complexes Possible Left atrial enlargement ST & T wave abnormality, consider anterolateral ischemia Prolonged QT Abnormal ECG
[2017-12-29] MEDS: Enoxaparin 40 mg Syringe SC SCH (13:00)
--- NOTE | 2017-12-29 13:42 | CT ---
Date of service: 12/28/2017 PROCEDURE: CT Chest with contrast (Pulmonary Angiogram) HISTORY: Shortness of breath elevated dimer COMPARISON: None available. TECHNIQUE: Axial computed tomography images were obtained of the chest in the pulmonary arterial phase of enhancement. Coronal and sagittal reformatted images were created and reviewed. Intravenous contrast dose: Radiation dose: Total exam DLP = 524.03 mGy-cm. This CT exam was performed using one or more of the following dose reduction techniques: Automated exposure control, adjustment of the mA and/or kV according to patient size, and/or use of iterative reconstruction technique. FINDINGS: PULMONARY ARTERIES: Visualized pulmonary trunk, right and left main, lobar, segmental and proximal subsegmental branches of the pulmonary arteries appear well opacified with no definitive filling defects seen to suggest acute central pulmonary embolus. AORTA: No acute findings. No thoracic aortic aneurysm. Ascending thoracic aorta measures approximately 3.2 cm and descending thoracic aorta measures approximately 2.5 cm. Minimal the o aortic atherosclerotic calcification or mural plaque present. LUNGS: Numerous small pleural based cystic foci seen in both lung apices right greater than left, which could represent mild paraseptal emphysematous changes admixed with small blebs.. Mild passive/dependent type atelectasis seen both posterior lower lung hand. . No obvious parenchymal masses or nodules.. The PLEURAL SPACES: No effusion or evidence of pneumothorax. HEART: Heart size within range of normal.. No significant pericardial effusion. LYMPH NODES: No significant mediastinal or hilar lymphadenopathy.. Trachea midline with no large central endoluminal lesions. BONES, CHEST WALL: Minor multilevel degenerative spondylosis of the thoracic spine. OTHER FINDINGS: There is slight edematous appearance of the pancreatic body with surrounding infiltration in the peripancreatic fat. Findings most likely represent acute pancreatitis. Clinical correlation with serum amylase/lipase. Infiltration changes extend into the left para renal space. Some minimal infiltration right perinephric face. Mild to moderate fatty hepatic infiltration. IMPRESSION: No evidence of acute central pulmonary embolus. Findings consistent with mild pancreatitis as above. Note that this report was placed in PA review folder for follow up.
--- NOTE | 2017-12-29 15:52 | VASCLAB ---
Date of service: 12/28/2017 PROCEDURE: Lower Extremity Venous Duplex Exam. HISTORY: Leg pain PRIORS: None. TECHNIQUE: Bilateral common femoral, femoral, popliteal and posterior tibial, peroneal and great saphenous veins were evaluated. Flow was assessed with color Doppler, compressibility, assessment of phasic flow and augmentation response. Report prepared by MEI Squires FINDINGS: RIGHT: 1. Common Femoral Vein: 1.1. Compressibility - Fully compressible: Thrombus - None : Flow - Phasic: Augmentation -Normal: Reflux - None. 2. Femoral Vein: 2.1. Compressibility - Fully compressible: Thrombus - None : Flow - Phasic: Augmentation -Normal: Reflux - None. 3. Popliteal Vein: 3.1. Compressibility - Fully compressible: Thrombus - None : Flow - Phasic: Augmentation -Normal: Reflux - Severe >3.11s 4. Posterior Tibial Vein: 4.1. Compressibility - Fully compressible: Thrombus - None: Flow - Phasic: Augmentation -Normal: Reflux - None. 5. Peroneal Vein: 5.1. Compressibility - Fully compressible: Thrombus - None: Flow - Phasic: Augmentation -Normal: Reflux - None. 6. Great Saphenous Vein: 6.1. Compressibility - Fully compressible: Thrombus - None: Flow - Phasic: Augmentation - Normal: Reflux - None. LEFT: 1. Common Femoral Vein: 1.1. Compressibility - Fully compressible: Thrombus - None: Flow - Phasic: Augmentation -Normal: Reflux - None. 2. Femoral Vein: 2.1. Compressibility - Fully compressible: Thrombus - None: Flow - Phasic: Augmentation -Normal: Reflux - None. 3. Popliteal Vein: 3.1. Compressibility - Fully compressible: Thrombus - None : Flow - Phasic: Augmentation -Normal: Reflux - None. 4. Posterior Tibial Vein: 4.1. Compressibility - Fully compressible: Thrombus - None: Flow - Phasic: Augmentation -Normal: Reflux - None. 5. Peroneal Vein: 5.1. Compressibility - Fully compressible: Thrombus - None: Flow - Phasic: Augmentation -Normal: Reflux - None. 6. Great Saphenous Vein: (lower) 6.1. Compressibility - Fully compressible: Thrombus - None: Flow - Phasic: Augmentation - Normal: Reflux - None. OTHER FINDINGS: Right: None significant. Left: None significant. IMPRESSION: Right: No evidence of deep or superficial vein thrombosis of the right lower extremity. Valvular incompetence noted of the right popliteal vein. Left: No evidence of deep or superficial vein thrombosis of the left lower extremity. Normal valve function noted of the left side.
[2017-12-29] MEDS ORDERED: (Novolin R) Insulin Human Regular 100 units/ml vial SC SCH ×2 (18:00)
--- NOTE | 2017-12-29 21:24 | CP.PCM.PN ---
Subjective - Date & Time of Evaluation Date of Evaluation: 12/29/17 Time of Evaluation: 13:30 - Subjective Subjective: clinically same Objective - Vital Signs/Intake and Output Vital Signs (last 24 hours): Temp Pulse Resp BP Pulse Ox 99.5 F 89 18 133/84 98 12/29/17 16:00 12/29/17 19:00 12/29/17 19:00 12/29/17 19:00 12/29/17 08:00 Intake and Output: 12/29/17 12/30/17 18:59 06:59 Intake Total 1268 Output Total 800 Balance 468 - Medications Medications: Current Medications Dextrose (Dextrose 50% Inj) 0 ml IV STAT PRN; Protocol PRN Reason: Hypoglycemia Protocol Dextrose (Glutose 15) 0 gm PO ONCE PRN; Protocol PRN Reason: Hypoglycemia Protocol Dextrose (Dextrose 50% Inj) 0 ml IV STAT PRN; Protocol PRN Reason: Hypoglycemia Protocol Dextrose (Glutose 15) 0 gm PO ONCE PRN; Protocol PRN Reason: Hypoglycemia Protocol Enoxaparin Sodium (Lovenox) 40 mg SC DAILY [facility] Last Admin: 12/29/17 13:00 Dose: 40 mg Glipizide (Glucotrol) 10 mg PO ACBD [facility] Glucagon (Glucagen Diagnostic Kit) 0 mg IM STAT PRN; Protocol PRN Reason: Hypoglycemia Protocol Glucagon (Glucagen Diagnostic Kit) 0 mg IM STAT PRN; Protocol PRN Reason: Hypoglycemia Protocol Dextrose (Dextrose 5% In Water 1000 Ml) 1,000 mls @ 0 mls/hr IV .Q0M PRN; Protocol PRN Reason: Hypoglycemia Protocol Dextrose (Dextrose 5% In Water 1000 Ml) 1,000 mls @ 0 mls/hr IV .Q0M PRN; Protocol PRN Reason: Hypoglycemia Protocol Influenza Virus Vaccine (Fluzone Quad [id number]) 60 mcg IM .ONCE ONE Stop: 12/31/17 10:01 Insulin Aspart (Novolog) 0 unit SC ACHS [facility]; Protocol Insulin Human Regular (Novolin R) 0 unit SC QID [facility]; Protocol Metformin HCl (Glucophage) 500 mg PO BID [facility] Last Admin: 12/29/17 17:16 Dose: 500 mg Pneumococcal Polyvalent Vaccine (Pneumovax 23 Vaccine) 0.5 ml SC .ONCE ONE Stop: 12/31/17 10:01 - Labs Labs: 12/28/17 15:27 12/29/17 09:46 PT 13.1 SECONDS (9.7-12.2) H 12/28/17 15:27 INR 1.2 12/28/17 15:27 APTT 24 SECONDS (21-34) 12/28/17 15:27 - Constitutional Appears: Well - Head Exam Head Exam: ATRAUMATIC, NORMAL INSPECTION, NORMOCEPHALIC - Eye Exam Eye Exam: EOMI, Normal appearance, PERRL Pupil Exam: NORMAL ACCOMODATION, PERRL - ENT Exam ENT Exam: Mucous Membranes Moist, Normal Exam - Neck Exam Neck Exam: Full ROM, Normal Inspection. absent: Lymphadenopathy - Respiratory Exam Respiratory Exam: Decreased Breath Sounds - Cardiovascular Exam Cardiovascular Exam: REGULAR RHYTHM, +S1, +S2 - GI/Abdominal Exam GI & Abdominal Exam: Soft, Diminished Bowel Sounds - Rectal Exam Rectal Exam: Deferred
[2017-12-29] MEDS: (Novolog) Insulin Aspart, Recombinant 100 u/ml 10 ml vial SC SCH (22:05)
--- NOTE | 2017-12-30 06:39 | PN ---
DATE: 12/29/2017 ENDOCRINOLOGY FOLLOWUP NOTE LOCATION: ICU, Room 4. SUBJECTIVE: This is a 57-year-old male with recent uncontrolled type 2 insulin requiring diabetes, now being followed closely for metabolic management. He presented here with diabetic ketoacidosis and dehydration with marked hyperglycemic accelerations as noted thereof. His glucose values have been markedly improved today as noted and glucose levels have range from 159 to 188 and 200 mg/dL. His chemistry showed a BUN of 19, sodium 139, potassium 4.4, chloride 106, CO2 of 22, glucose 185, and creatinine 0.5. So at this time, we will modify his current coverage scale to obviate hypoglycemia and detailed orders have been given. We will also ideally recommend continuing the vigorous IV hydration to poorly replenish the lost of fluids and electrolytes as noted, especially as he still has mild prerenal azotemia as noted thereof. We will also resume the dual oral hypoglycemic therapy as given with metformin given as 500 mg b.i.d. and glipizide given as 10 mg b.i.d. before meals as ordered. We will also modify the coverage scale to obviate hypoglycemia and detailed orders have been given using NovoLog insulin as ordered. We will consider the addition of basal insulin, effective hyperglycemic levels supervene otherwise. We will modify the coverage scale and detailed orders have been given. We will follow. Calli Houston MD
[2017-12-30] MEDS: (Novolog) Insulin Aspart, Recombinant 100 u/ml 10 ml vial SC SCH ×5 (07:50→22:10)
[2017-12-30] MEDS: Enoxaparin 40 mg Syringe SC SCH (10:37)
[2017-12-30 17:06] VITALS: RESP 20
--- NOTE | 2017-12-30 20:55 | CP.PCM.PN ---
Subjective - Date & Time of Evaluation Date of Evaluation: 12/30/17 Time of Evaluation: 07:45 - Subjective Subjective: clinically same Objective - Vital Signs/Intake and Output Vital Signs (last 24 hours): Temp Pulse Resp BP Pulse Ox 99 F 104 H 20 117/75 100 12/30/17 16:00 12/30/17 16:00 12/30/17 16:00 12/30/17 16:00 12/30/17 16:00 Intake and Output: 12/30/17 12/31/17 18:59 06:59 Intake Total 750 Output Total 1600 Balance -850 - Medications Medications: Current Medications Dextrose (Dextrose 50% Inj) 0 ml IV STAT PRN; Protocol PRN Reason: Hypoglycemia Protocol Dextrose (Glutose 15) 0 gm PO ONCE PRN; Protocol PRN Reason: Hypoglycemia Protocol Dextrose (Dextrose 50% Inj) 0 ml IV STAT PRN; Protocol PRN Reason: Hypoglycemia Protocol Dextrose (Glutose 15) 0 gm PO ONCE PRN; Protocol PRN Reason: Hypoglycemia Protocol Enoxaparin Sodium (Lovenox) 40 mg SC DAILY [facility] Last Admin: 12/30/17 10:37 Dose: 40 mg Glucagon (Glucagen Diagnostic Kit) 0 mg IM STAT PRN; Protocol PRN Reason: Hypoglycemia Protocol Glucagon (Glucagen Diagnostic Kit) 0 mg IM STAT PRN; Protocol PRN Reason: Hypoglycemia Protocol Dextrose (Dextrose 5% In Water 1000 Ml) 1,000 mls @ 0 mls/hr IV .Q0M PRN; Protocol PRN Reason: Hypoglycemia Protocol Dextrose (Dextrose 5% In Water 1000 Ml) 1,000 mls @ 0 mls/hr IV .Q0M PRN; Protocol PRN Reason: Hypoglycemia Protocol Influenza Virus Vaccine (Fluzone Quad [id number]) 60 mcg IM .ONCE ONE Stop: 12/31/17 10:01 Insulin Aspart (Novolog) 10 unit SC AC [facility] Last Admin: 12/30/17 16:27 Dose: 10 units Insulin Aspart (Novolog) 0 unit SC [facility]; Protocol Last Admin: 12/30/17 16:35 Dose: 3 unit Insulin Detemir (Levemir) 20 unit SC [facility] Metformin HCl (Glucophage) 500 mg PO BID [facility] Last Admin: 12/30/17 18:34 Dose: 500 mg Pneumococcal Polyvalent Vaccine (Pneumovax 23 Vaccine) 0.5 ml SC .ONCE ONE Stop: 12/31/17 10:01 - Labs Labs: 12/28/17 15:27 12/29/17 09:46 PT 13.1 SECONDS (9.7-12.2) H 12/28/17 15:27 INR 1.2 12/28/17 15:27 APTT 24 SECONDS (21-34) 12/28/17 15:27
[2017-12-30] MEDS ORDERED: Insulin Detemir 100 units/ml Vial (Levemir) SC SCH (22:00)
--- NOTE | 2017-12-31 01:07 | PN ---
DATE: 12/30/2017 ENDOCRINOLOGY FOLLOWUP NOTE LOCATION: ICU room 4. SUBJECTIVE: This is a 57-year-old male with recent uncontrolled type 2 insulin-requiring diabetes, now being followed closely for metabolic management. His glycemic levels are fluctuating with supervening hyperglycemic accelerations as noted today, and glucose values have ranged from 269-420 mg per dL. It was 346 at bedtime last night. LABORATORY DATA: His chemistry showed a BUN of 19, sodium 139, potassium 4.4, chloride 106, CO2 of 22, glucose 185, and creatinine 0.5. ASSESSMENT AND PLAN: At this time, will modify once again his basal and bolus insulin regimen and increase the Levemir to 20 units subcutaneously at bedtime daily to start tonight. We will also titrate his NovoLog to 10 units subcutaneously t.i.d. before meals to start today as ordered. We will modify the coverage scale to obviate type of hypoglycemia, and detailed orders have been given. We will also obtain serial chemistries and supplement accordingly as needed. We will follow and advise accordingly. Calli Houston MD
[2017-12-31] MEDS: (Novolog) Insulin Aspart, Recombinant 100 u/ml 10 ml vial SC SCH ×7 (07:53→21:47)
[2017-12-31] MEDS: Enoxaparin 40 mg Syringe SC SCH (09:25)
[2017-12-31] MEDS ORDERED: Pneumococcal 23-Valent Vaccine SC ONE (10:00)
[2017-12-31] MEDS ORDERED: Influenza Vaccine 60 MCG/0.5 ML SYR (3 yr & up) IM ONE (10:00)
--- NOTE | 2017-12-31 14:57 | CP.PCM.PN ---
Subjective - Date & Time of Evaluation Date of Evaluation: 12/31/17 Time of Evaluation: 07:30 - Subjective Subjective: clinically same Objective - Vital Signs/Intake and Output Vital Signs (last 24 hours): Temp Pulse Resp BP Pulse Ox 98.9 F 84 20 118/68 99 12/30/17 23:33 12/30/17 23:33 12/30/17 23:33 12/30/17 23:33 12/30/17 23:33 Intake and Output: 12/31/17 12/31/17 06:59 18:59 Intake Total 720 Balance 720 - Medications Medications: Current Medications Dextrose (Dextrose 50% Inj) 0 ml IV STAT PRN; Protocol PRN Reason: Hypoglycemia Protocol Dextrose (Glutose 15) 0 gm PO ONCE PRN; Protocol PRN Reason: Hypoglycemia Protocol Dextrose (Dextrose 50% Inj) 0 ml IV STAT PRN; Protocol PRN Reason: Hypoglycemia Protocol Dextrose (Glutose 15) 0 gm PO ONCE PRN; Protocol PRN Reason: Hypoglycemia Protocol Enoxaparin Sodium (Lovenox) 40 mg SC DAILY [facility] Last Admin: 12/31/17 09:25 Dose: 40 mg Glucagon (Glucagen Diagnostic Kit) 0 mg IM STAT PRN; Protocol PRN Reason: Hypoglycemia Protocol Glucagon (Glucagen Diagnostic Kit) 0 mg IM STAT PRN; Protocol PRN Reason: Hypoglycemia Protocol Dextrose (Dextrose 5% In Water 1000 Ml) 1,000 mls @ 0 mls/hr IV .Q0M PRN; Protocol PRN Reason: Hypoglycemia Protocol Dextrose (Dextrose 5% In Water 1000 Ml) 1,000 mls @ 0 mls/hr IV .Q0M PRN; Protocol PRN Reason: Hypoglycemia Protocol Insulin Aspart (Novolog) 10 unit SC AC [facility] Last Admin: 12/31/17 11:24 Dose: 10 units Insulin Aspart (Novolog) 0 unit SC ACHS [facility]; Protocol Last Admin: 12/31/17 11:20 Dose: Not Given Insulin Detemir (Levemir) 20 unit SC HS [facility] Last Admin: 12/30/17 22:09 Dose: 20 u Metformin HCl (Glucophage) 500 mg PO BID [facility] Last Admin: 12/31/17 09:25 Dose: 500 mg - Labs Labs: 12/28/17 15:27 12/29/17 09:46 PT 13.1 SECONDS (9.7-12.2) H 12/28/17 15:27 INR 1.2 12/28/17 15:27 APTT 24 SECONDS (21-34) 12/28/17 15:27 - Constitutional Appears: Well - Head Exam Head Exam: ATRAUMATIC, NORMAL INSPECTION, NORMOCEPHALIC - Eye Exam Eye Exam: EOMI, Normal appearance, PERRL Pupil Exam: NORMAL ACCOMODATION, PERRL - ENT Exam ENT Exam: Mucous Membranes Moist, Normal Exam - Neck Exam Neck Exam: Full ROM, Normal Inspection. absent: Lymphadenopathy - Respiratory Exam Respiratory Exam: Decreased Breath Sounds - Cardiovascular Exam Cardiovascular Exam: REGULAR RHYTHM, +S1, +S2 - GI/Abdominal Exam GI & Abdominal Exam: Soft, Diminished Bowel Sounds - Rectal Exam Rectal Exam: Deferred
--- NOTE | 2017-12-31 18:40 | PN ---
DATE: 12/31/2017 LOCATION: Room 368. SUBJECTIVE: This is a 57-year-old male with recent uncontrolled type 2 insulin-requiring diabetes, presenting here with diabetic ketoacidosis and marked hyperglycemic accelerations and received intensive insulin therapy with vigorous IV hydration. His glycemic levels are fluctuating as noted with glucose values ranging from 174 to 299 and 320 mg/dL. It was 370 at bedtime last night. LABORATORY DATA: His chemistries showed a BUN of 19, sodium 139, potassium 4.4, chloride 106, CO2 of 22, glucose 185 and creatinine 0.5. PLAN: So at this time, we will modify once again his basal and bolus insulin regimen and increase the Novolog to 12 units subcu t.i.d. before meals to start today as ordered. We will continue also the low-dose correction scale using Novolog insulin with glucose coverage only above 300 to obviate hypoglycemia and detailed orders have been given. Moreover, we will also increase his basal insulin with Levemir to be given as 24 units subcu at bedtime daily to start tonight. We will also reinforce dietary education and dietary instructions to include insulin self-administration as given. We will obtain serial chemistries and supplement accordingly as needed. We will follow. Calli Houston MD
[2017-12-31] MEDS ORDERED: Insulin Detemir 100 units/ml Vial (Levemir) SC SCH (22:00)
[2017-12-31 23:36] VITALS: TEMP 98.4; O2SAT 97
[2018-01-01 06:40] LABS: BASO % 0.7 % (0.0-2.0); EOS # 0.1 K/uL (0.0-0.7); EOS % 1.7 % (0.0-4.0); HEMOGLOBIN 10.6 g/dL (12.0-18.0); LYMPH # 0.9 K/uL (1.0-4.3); LYMPH % 21.2 % (20.0-40.0); MEAN CELL VOLUME 118.4 fL (80.0-94.0); MEAN CORPUSCULAR HEMOGLOBIN 41.2 pg (27.0-31.0); MEAN CORPUSCULAR HGB CONC 34.8 g/dL (33.0-37.0); MEAN PLATELET VOLUME 9.5 fL (7.2-11.7); MONO # 0.8 K/uL (0.0-0.8); MONO % 18.7 % (0.0-10.0); NEUT # 2.5 K/uL (1.8-7.0); NEUT % 57.7 % (50.0-75.0); NRBC % 0.2 % (0.0-2.0); RBC 2.56 Mil/uL (4.40-5.90); RED CELL DISTRIBUTION WIDTH 14.6 % (11.5-14.5); WHITE BLOOD COUNT 4.3 K/uL (4.8-10.8)
[2018-01-01 06:53] LABS: BLOOD UREA NITROGEN 13 mg/dL (9-20); CALCIUM 9.4 mg/dl (8.6-10.4); GFR NON-AFRICAN AMERICAN > 60
[2018-01-01 08:10] VITALS: BP 103/67
[2018-01-01] MEDS: (Novolog) Insulin Aspart, Recombinant 100 u/ml 10 ml vial SC SCH ×4 (08:15→12:18)
[2018-01-01 08:45] VITALS: PULSE 85
[2018-01-01] MEDS: Enoxaparin 40 mg Syringe SC SCH (09:25)
[2018-01-01] MEDS ORDERED: Potassium Chloride 20 mEq ER Tab PO ONE (10:00)
[2018-01-01] MEDS ORDERED: Pneumococcal 23-Valent Vaccine IM ONE (12:48)
[2018-01-01] MEDS ORDERED: Influenza Virus Vaccine 45 mcg/0.5 ml Syr (36 months - 7 yrs) IM ONE (13:15)
[2018-01-01] MEDS ORDERED: Influenza Vaccine 60 MCG/0.5 ML SYR (3 yr & up) IM ONE (13:30)
--- NOTE | 2018-01-01 16:36 | CP.PCM.PN ---
Subjective - Date & Time of Evaluation Date of Evaluation: 01/01/18 Time of Evaluation: 16:36 - Subjective Subjective: alert, oriented x3, denies any complaints. Blood sugar improving. Objective - Vital Signs/Intake and Output Vital Signs (last 24 hours): Temp Pulse Resp BP Pulse Ox 98.4 F 85 20 103/67 97 01/01/18 08:09 01/01/18 08:30 01/01/18 08:09 01/01/18 08:09 01/01/18 08:09 Intake and Output: 01/01/18 01/01/18 06:59 18:59 Intake Total 500 Balance 500 - Labs Labs: 01/01/18 06:18 01/01/18 06:19 PT 13.1 SECONDS (9.7-12.2) H 12/28/17 15:27 INR 1.2 12/28/17 15:27 APTT 24 SECONDS (21-34) 12/28/17 15:27 Assessment and Plan - Assessment and Plan (Free Text) Assessment: 57 Year old male admitted with uncontrolled diabetis, seen and examined. Alert and orientedx3, ambulating with walker well. Blood sugar improved, A1A 6.1. Discussed with DR Marika Du plan to discharge home today on oral medications. Advi sed to follow up in the office in 1 week.Advised to check the blood sugar daily and follow up with MD as needed.
--- NOTE | 2018-01-03 08:21 | PN ---
DATE: 01/01/2018 ENDOCRINOLOGY FOLLOWUP NOTE LOCATION: In room 368. SUBJECTIVE: This is a 57-year-old male with recent uncontrolled type 2 insulin-requiring diabetes, now being followed closely for metabolic management. He presented here with diabetic ketoacidosis and dehydration and received vigorous IV hydration and intensive insulin therapy in the ICU as given. His glycemic levels have improved remarkably and the glucose values overnight have ranged from 138 to 186 mg/dL. His bedtime glucose was 253. LABORATORY DATA: His chemistries showed a BUN of 13, sodium 135, potassium 3.3, chloride 101, CO2 of 25, glucose 158, and creatinine 0.5. ASSESSMENT AND PLAN: So at this time, we will continue the same basal and bolus insulin regimen to allow for dose equilibration and keep him on the NovoLog given as 12 units subcutaneously t.i.d. before meals as ordered. We will continue the Levemir given as basal insulin at 24 units subcutaneously at bedtime daily as given. We will continue also the metformin given as 500 mg b.i.d. as ordered. We will obtain serial chemistries and supplement accordingly as needed. We will follow. Calli Houston MD
== END 2018-01-01 13:40 | disposition home or self-care (01) | DRG 639 ==
LOC: C.ER 11:31 → C.9E 16:35 → C.9I 16:52 → C.9E 19:12 → C.9I 20:50 → C.9E 21:01 → C.9I 21:30 → C.3T 12-30 16:54
PROVIDERS: ADMIT Internal Medicine Nephrology; ATTEND Internal Medicine Nephrology
DX: E11.10 Type 2 diabetes mellitus with ketoacidosis without coma (principal); E86.0 Dehydration; Z79.4 Long term (current) use of insulin; E78.5 Hyperlipidemia, unspecified; I25.10 Atherosclerotic heart disease of native coronary artery without angina pectoris; Z95.1 Presence of aortocoronary bypass graft; E11.319 Type 2 diabetes mellitus with unspecified diabetic retinopathy without macular edema; E78.00 Pure hypercholesterolemia, unspecified; Z87.891 Personal history of nicotine dependence; N18.9 Chronic kidney disease, unspecified; E11.22 Type 2 diabetes mellitus with diabetic chronic kidney disease; E11.51 Type 2 diabetes mellitus with diabetic peripheral angiopathy without gangrene; I12.9 Hypertensive chronic kidney disease with stage 1 through stage 4 chronic kidney disease, or unspecified chronic kidney disease; K21.9 Gastro-esophageal reflux disease without esophagitis

== ENCOUNTER 2018-01-02 18:59 | Inpatient (IN) | payer OTHER, MEDICARE ==
[2018-01-02 19:04] VITALS: BMI 32.5
[2018-01-02] MEDS ORDERED: Sodium Chloride 0.9% 1,000 ML IV ONE (19:51)
[2018-01-02] MEDS ORDERED: Sodium Chloride 0.9% 500 ML IV SCH (20:00)
[2018-01-02 20:26] LABS: BASO % 0.6 % (0.0-2.0); EOS % 0.7 % (0.0-4.0); HEMOGLOBIN 10.9 g/dL (12.0-18.0); LYMPH # 0.6 K/uL (1.0-4.3); LYMPH % 11.3 % (20.0-40.0); MEAN CORPUSCULAR HEMOGLOBIN 40.9 pg (27.0-31.0); MEAN CORPUSCULAR HGB CONC 33.8 g/dL (33.0-37.0); MEAN PLATELET VOLUME 8.1 fL (7.2-11.7); MONO % 19.3 % (0.0-10.0); NEUT # 3.5 K/uL (1.8-7.0); NEUT % 68.1 % (50.0-75.0); NRBC % 0.1 % (0.0-2.0); RBC 2.66 Mil/uL (4.40-5.90); RED CELL DISTRIBUTION WIDTH 14.9 % (11.5-14.5); WHITE BLOOD COUNT 5.1 K/uL (4.8-10.8)
[2018-01-02 20:51] LABS: ALB/GLOB RATIO 1.2 (1.0-2.1); ALBUMIN 3.6 g/dL (3.5-5.0); ALT/SGPT 26 U/L (21-72); AST/SGOT 37 U/L (17-59); BLOOD UREA NITROGEN 19 mg/dL (9-20); CALCIUM 10.1 mg/dl (8.6-10.4); GFR NON-AFRICAN AMERICAN > 60
[2018-01-02] MEDS ORDERED: Sodium Chloride 0.9% 1,000 ML ONE ×2 (20:51→22:24)
[2018-01-02 21:00] LABS: URINE BILIRUBIN NEGATIVE (NEGATIVE); URINE BLOOD NEGATIVE (NEGATIVE); URINE CLARITY Clear (Clear); URINE COLOR Yellow (YELLOW); URINE GLUCOSE (UA) 3+ mg/dL (Normal); URINE LEUKOCYTE ESTERASE NEG Leu/uL (Negative); URINE PROTEIN NEGATIVE (NEGATIVE); URINE UROBILINOGEN NORMAL mg/dL (0.2-1.0)
[2018-01-02] MEDS: Magnesium Sulfate 1 gm in D5W 1 GM/100 ML BAG IVPB SCH ×2 (21:40→21:50)
--- NOTE | 2018-01-02 21:47 | C.PDOC ---
History Of Present Illness 57 year old male presents to the ED with family for evaluation of elevated blood sugar levels. Patient states he checked his blood sugar, which was 596 today. Patient reports polydipsia and polyuria. Patient denies fever, chills, chest pain, vomiting, cough. PMD: Dr. Green Time Seen by Provider: 01/02/18 19:32 Chief Complaint (Nursing): High Blood Sugar History Per: Patient History/Exam Limitations: no limitations Onset/Duration Of Symptoms: Hrs Current Symptoms Are (Timing): Still Present Current Diabetic Medications: Oral Medication Additional History Per: Patient Past Medical History Reviewed: Historical Data, Nursing Documentation, Vital Signs Vital Signs: Last Vital Signs Temp 97.6 F 01/02/18 19:03 Pulse 107 H 01/02/18 19:03 Resp 19 01/02/18 19:03 BP 119/76 01/02/18 19:03 Pulse Ox 100 01/02/18 19:03 - Medical History PMH: Diabetes (non insulin dependent ), HTN, Hypercholesterolemia, Peripheral Edema, Chronic Kidney Disease Surgical History: CABG (5 yrs ago) - [facility] Procedures CYSTOSCOPY NEC (05/09/14) RETROGRADE PYELOGRAM (05/09/14) Family History: States: Unknown Family Hx - Social History Hx Alcohol Use: Yes Hx Substance Use: No - Immunization History Hx Tetanus Toxoid Vaccination: No Hx Influenza Vaccination: Yes (Dec 2017) Hx Pneumococcal Vaccination: Yes (Dec 2017) Review Of Systems Constitutional: Positive for: Other (elevated blood sugar ). Negative for: F ever, Chills Physical Exam - Physical Exam Appears: Non-toxic, No Acute Distress Skin: Normal Color, Warm, Dry Head: Atraumatic, Normacephalic Eye(s): bilateral: Normal Inspection Oral Mucosa: Moist Neck: Supple Chest: Symmetrical, No Deformity, No Tenderness Cardiovascular: Rhythm Regular, No Murmur Respiratory: Normal Breath Sounds, No Rales, No Rhonchi, No Wheezing Gastrointestinal/Abdominal: Soft, No Tenderness, No Guarding, No Rebound Extremity: Normal ROM, Capillary Refill (less than 2 seconds ) Neurological/Psych: Oriented x3, Normal Speech, Normal Cognition ED Course And Treatment - Laboratory Results Result Diagrams: 01/02/18 20:22 01/02/18 20:22 ECG: Interpreted By Me, Viewed By Me ECG Rhythm: Sinus Rhythm ECG Interpretation: No Changes From Prior (No significant changes from 12/29/17) Interpretation Of ECG: Normal Sinus Rhythm at rate 91bpm. Normal AL and WRS interval. Prolonged QT wave. Normal axis. No ST elevations. T wave inversions in anterior lead. No significant changes since 12/29/17. Rate From EC O2 Sat by Pulse Oximetry: 100 (on RA ) Pulse Ox Interpretation: Normal Medical Decision Making Medical Decision Making: Progress: Bloodwork, urinalysis, CXR, EKG ordered and reviewed. IV fluids given. Case discussed with Dr. Marika Du, who accepts the patient for admission. Patient and agree with plan. Disposition - Disposition - Scribe Statement The provider has reviewed the documentation as recorded by the Scribe (Amelia Du) Provider Attestation: All medical record entries made by the Scribe were at my direction and personally dictated by me. I have reviewed the chart and agree that the record accurately reflects my personal performance of the history, physical exam, medical decision making, and the department course for this patient. I have also personally directed, reviewed, and agree with the discharge instructions and disposition.
[2018-01-02] MEDS ORDERED: Home Med 1 UNIT (Simvastatin [Simvastatin] 20 MG) PO SCH (22:00)
[2018-01-02] MEDS ORDERED: (Novolog) Insulin Aspart, Recombinant 100 u/ml 10 ml vial ONE (22:23)
[2018-01-02] MEDS: (Novolog) Insulin Aspart, Recombinant 100 u/ml 10 ml vial SC SCH (22:30)
[2018-01-02] MEDS: Sodium Chloride 0.9% 1,000 ML IV SCH (22:32)
[2018-01-03 08:11] VITALS: RESP 20
[2018-01-03] MEDS: (Novolog) Insulin Aspart, Recombinant 100 u/ml 10 ml vial SC SCH ×4 (08:35→21:32)
[2018-01-03] MEDS ORDERED: (Novolog) Insulin Aspart, Recombinant 100 u/ml 10 ml vial SC SCH ×3 (08:45→14:07)
--- NOTE | 2018-01-03 09:07 | RAD ---
Chest x-ray single frontal view History: Hyperglycemia. Comparison: None available. Findings: Status post median sternotomy and CABG. Mild biapical pleural thickening. No focal infiltrate or effusion. Top normal heart size. Impression: No focal infiltrate or effusion.
[2018-01-03] MEDS ORDERED: GlipiZIDE 10 mg SR Tab PO SCH (10:00)
[2018-01-03] MEDS ORDERED: Dextrose 50% SYRINGE Inj (50 ml) IV PRN (10:09)
[2018-01-03] MEDS ORDERED: Glucagon Recombinant 1 mg Inj IM PRN (10:09)
[2018-01-03] MEDS ORDERED: (Novolog) Insulin Aspart, Recombinant 100 u/ml 10 ml vial SC ONE ×2 (11:06→14:45)
[2018-01-03 11:25] LABS: BASO % 0.7 % (0.0-2.0); EOS # 0.1 K/uL (0.0-0.7); EOS % 1.2 % (0.0-4.0); HEMOGLOBIN 9.9 g/dL (12.0-18.0); LYMPH # 0.5 K/uL (1.0-4.3); LYMPH % 8.9 % (20.0-40.0); MEAN CORPUSCULAR HGB CONC 34.6 g/dL (33.0-37.0); MEAN PLATELET VOLUME 8.5 fL (7.2-11.7); MONO % 18.6 % (0.0-10.0); NEUT # 3.8 K/uL (1.8-7.0); NEUT % 70.6 % (50.0-75.0); NRBC % 0.1 % (0.0-2.0); PLATELET COUNT 118 K/uL (130-400); RBC 2.42 Mil/uL (4.40-5.90); RED CELL DISTRIBUTION WIDTH 14.5 % (11.5-14.5); WHITE BLOOD COUNT 5.4 K/uL (4.8-10.8)
[2018-01-03] MEDS: Sodium Chloride 0.9% 1,000 ML IV SCH ×2 (11:30→15:21)
[2018-01-03 11:38] LABS: MEAN CELL VOLUME 118.4 fL (80.0-94.0)
[2018-01-03 11:49] LABS: BLOOD UREA NITROGEN 15 mg/dL (9-20); CALCIUM 9.6 mg/dl (8.6-10.4); GFR NON-AFRICAN AMERICAN > 60
[2018-01-03 12:08] LABS: EOSINOPHIL 1 % (0-4); LYMPHOCYTE 11 % (20-40); MONOCYTE 11 % (0-10); NEUTROPHIL 77 % (50-75); PLATELET ESTIMATE SLIGHTLY DECREASED (NORMAL); TOTAL CELLS COUNTED 100
[2018-01-03 12:09] LABS: POLYCHROMIC SLIGHT
--- NOTE | 2018-01-03 12:14 | CARD ---
APPROVED REPORT Date of service: 01/02/2018 EKG Measurement Heart [id number] <Conclusion> Normal sinus rhythm Possible Left atrial enlargement Left ventricular hypertrophy ST & T wave abnormality, consider anterior ischemia Abnormal ECG
--- NOTE | 2018-01-03 12:38 | CP.PCM.PN ---
Subjective - Date & Time of Evaluation Date of Evaluation: 01/03/18 Time of Evaluation: 12:36 - Subjective Subjective: PGY-2 Progress Note Patient seen and examined at bedside. Per nursing no acute events occurred overnight. Patient reports an improvement in nausea since yesterday. Patient still reports some diarrhea, but it has decreased in severity. Patient denies any chest pian, fevers, chills, headaches, dizziness, syncopal episodes, or any other complaints. 57 year old male with PMH of diabetes mellitus, HTN, HLD who presents to the hospital with an elevated blood sugar reading. Patient took his blood sugar at home and it was elevated at 596. Patient also reports polyuria and polydypsia in conjunction with the presenting symptoms. Patient denies any chest pain, abdominal pain, fevers, chills, palpitations, confusion, or any other complaints. Medical history: dm, htn, hld Surgical history:CABG (5 yrs ago) Allergies: Denies Objective - Vital Signs/Intake and Output Vital Signs (last 24 hours): Temp Pulse Resp BP Pulse Ox 98.2 F 75 20 110/70 98 01/03/18 08:30 01/03/18 08:30 01/03/18 08:10 01/03/18 09:24 01/03/18 08:10 Intake and Output: 01/03/18 01/03/18 06:59 18:59 Intake Total 765 Output Total 300 Balance 465 - Medications Medications: Current Medications Amlodipine Besylate (Norvasc) 10 mg PO DAILY [facility] Last Admin: 01/03/18 09:19 Dose: 10 mg Clopidogrel Bisulfate (Plavix) 75 mg PO DAILY [facility] Last Admin: 01/03/18 09:18 Dose: 75 mg Dextrose (Dextrose 50% Inj) 0 ml IV STAT PRN; Protocol PRN Reason: Hypoglycemia Protocol Dextrose (Glutose 15) 0 gm PO ONCE PRN; Protocol PRN Reason: Hypoglycemia Protocol Ergocalciferol (Drisdol 50,000 Intl Units Cap) 1 cap PO QWK [facility] Glipizide (Glucotrol Xl) 10 mg PO DAILY [facility] Last Admin: 01/03/18 09:18 Dose: 10 mg Glucagon (Glucagen Diagnostic Kit) 0 mg IM STAT PRN; Protocol PRN Reason: Hypoglycemia Protocol Sodium Chloride (Sodium Chloride 0.9%) 1,000 mls @ 75 mls/hr IV .[id number] [facility] Last Admin: 01/03/18 11:30 Dose: Not Given Dextrose (Dextrose 5% In Water 1000 Ml) 1,000 mls @ 0 mls/hr IV .Q0M PRN; Protocol PRN Reason: Hypoglycemia Protocol Insulin Aspart (Novolog) 0 unit SC ACHS [facility]; Protocol Lisinopril (Zestril) 20 mg PO DAILY [facility] Last Admin: 01/03/18 10:50 Dose: 20 mg Metformin HCl (Glucophage) 1,000 mg PO BIDCC [facility] Last Admin: 01/03/18 09:18 Dose: 1,000 mg Metoprolol Tartrate (Lopressor) 25 mg PO BID [facility] Last Admin: 01/03/18 09:24 Dose: 25 mg Rosuvastatin Calcium (Crestor) 5 mg PO HS [facility] Last Admin: 01/02/18 22:31 Dose: 5 mg Sitagliptin Phosphate (Januvia) 100 mg PO DAILY [facility] Last Admin: 01/03/18 09:19 Dose: 100 mg - Labs Labs: 01/03/18 11:09 01/03/18 11:09 - Head Exam Head Exam: ATRAUMATIC, NORMAL INSPECTION, NORMOCEPHALIC - Eye Exam Eye Exam: EOMI, Normal appearance, PERRL. absent: Periorbital tenderness Pupil Exam: NORMAL ACCOMODATION, PERRL - ENT Exam ENT Exam: Mucous Membranes Moist, Normal Oropharynx - Respiratory Exam Respiratory Exam: Clear to Ausculation Bilateral, NORMAL BREATHING PATTERN. absent: Prolonged Expiratory Phase, Respiratory Distress - Cardiovascular Exam Cardiovascular Exam: REGULAR RHYTHM, RRR, +S1, +S2. absent: Rubs - GI/Abdominal Exam GI & Abdominal Exam: Soft, Hyperactive Bowel Sounds, Normal Bowel Sounds - Extremities Exam Extremities Exam: Full ROM, Normal Inspection. absent: Joint Swelling, Pedal Edema - Neurological Exam Neurological Exam: Alert, Awake, CN II-XII Intact, Normal Gait, Oriented x3 - Psychiatric Exam Psychiatric exam: Normal Affect, Normal Mood. absent: Depressed - Skin Skin Exam: Dry, Intact, Normal Color Assessment and Plan - Assessment and Plan (Free Text) Assessment: 57 year old male with a past medical history of htn and hld presents to hospital with elevated blood glucose. Plan: 1. Diabetes- uncontrolled Encodrinology Dr. Houston consulted. Help appreciated. ISS ACHS Metformin 1000mg PO BID Glipizide 10mg PO Daily Januvia 100mg PO Daily Hypoglycemic protocol 2. Hypertension -Amlodipine 10mg PO Daily -Lisinopril 20mg PO Daily -Metoprolol 25mg PO BID 3. HLD -Rosuvastatin 5mg PO HS PPX -NS @75mls/hr -Plavix 75mg PO Daily Plan discussed with Attending Dr. Braulio Du. Shahbaz Iglesias, PGY-2
--- NOTE | 2018-01-03 18:30 | CP.PCM.HP ---
Past Patient History - Past Medical History & Family History Past Medical History?: Yes - Past Social History Smoking Status: Heavy Smoker > 10 Cigarettes Daily - CARDIAC Hx Cardiac Disorders: Yes Hx Hypercholesterolemia: Yes Hx Hypertension: Yes Hx Peripheral Edema: Yes - PULMONARY Hx Respiratory Disorders: No - NEUROLOGICAL Hx Neurological Disorder: No - HEENT Hx HEENT Problems: No - RENAL Hx Chronic Kidney Disease: Yes Hx Dialysis: Yes (7 years ago) - ENDOCRINE/METABOLIC Hx Endocrine Disorders: Yes Hx Diabetes Mellitus Type 2: Yes - HEMATOLOGICAL/ONCOLOGICAL Hx Blood Disorders: No - INTEGUMENTARY Hx Dermatological Problems: Yes Other/Comment: DISCOLORED SPOTS ARM LEGS - MUSCULOSKELETAL/RHEUMATOLOGICAL Hx Falls: Yes - GASTROINTESTINAL Hx Gastrointestinal Disorders: No - GENITOURINARY/GYNECOLOGICAL Hx Genitourinary Disorders: Yes Hx Hematuria: Yes - PSYCHIATRIC Hx Substance Use: No - SURGICAL HISTORY Hx Surgeries: Yes Hx Arteriovenous Shunt: Yes (7 years ago) Hx Coronary Artery Bypass Graft: Yes (5 yrs ago) - ANESTHESIA Hx Anesthesia: Yes Hx Anesthesia Reactions: No Hx Malignant Hyperthermia: No Meds Allergies/Adverse Reactions: Allergies Allergy/AdvReac Type Severity Reaction Status Date / Time No Known Allergies Allergy Verified 01/02/18 19:03 Physical Exam - Constitutional Appears: Well - Head Exam Head Exam: ATRAUMATIC, NORMAL INSPECTION, NORMOCEPHALIC - Eye Exam Eye Exam: EOMI, Normal appearance, PERRL Pupil Exam: NORMAL ACCOMODATION, PERRL - ENT Exam ENT Exam: Mucous Membranes Moist, Normal Exam - Neck Exam Neck exam: Positive for: Normal Inspection - Respiratory Exam Respiratory Exam: Decreased Breath Sounds - Cardiovascular Exam Cardiovascular Exam: REGULAR RHYTHM, +S1, +S2 - GI/Abdominal Exam GI & Abdominal Exam: Diminished Bowel Sounds, Soft - Rectal Exam Rectal Exam: Deferred Results - Vital Signs Recent Vital Signs: Last Vital Signs Temp 97.4 F L 01/03/18 15:54 Pulse 68 01/03/18 15:54 Resp 20 01/03/18 15:54 BP 122/61 01/03/18 17:52 Pulse Ox 97 01/03/18 15:54 - Labs Result Diagrams: 01/03/18 11:09 01/03/18 11:09 Labs: Laboratory Results - last 24 hr 01/02/18 01/02/18 01/02/18 19:09 20:22 20:22 WBC 5.1 RBC 2.66 L Hgb 10.9 L Hct 32.2 L MCV 121.0 H D MCH 40.9 H MCHC 33.8 RDW 14.9 H Plt Count 109 L D MPV 8.1 Neut % (Auto) 68.1 Lymph % (Auto) 11.3 L [place] % (Auto) 19.3 H Eos % (Auto) 0.7 Baso % (Auto) 0.6 Neut # (Auto) 3.5 Lymph # (Auto) 0.6 L [place] # (Auto) 1.0 H Eos # (Auto) 0.0 Baso # (Auto) 0.0 Neutrophils % (Manual) Lymphocytes % (Manual) Monocytes % (Manual) Eosinophils % (Manual) Platelet Estimate Polychromasia Macrocytosis (manual) Sodium 135 Potassium 5.0 Chloride 99 Carbon Dioxide 19 L Anion Gap 22 H BUN 19 Creatinine 0.7 L Est GFR ( Amer) > 60 Est GFR (Non-Af Amer) > 60 POC Glucose (mg/dL) 356 H Random Glucose 437 H* D Calcium 10.1 Phosphorus Magnesium 1.1 L Total Bilirubin 0.5 AST 37 ALT 26 Alkaline Phosphatase 76 Total Protein 6.7 Albumin 3.6 Globulin 3.1 Albumin/Globulin Ratio 1.2 Urine Color Urine Clarity Urine pH Ur Specific [place] Urine Protein Urine Glucose (UA) Urine Ketones Urine Blood Urine Nitrate Urine Bilirubin Urine Urobilinogen Ur Leukocyte Esterase Urine WBC (Auto) Urine RBC (Auto) 01/02/18 01/02/18 01/02/18 20:33 21:53 22:06 WBC RBC Hgb Hct MCV MCH MCHC RDW Plt Count MPV Neut % (Auto) Lymph % (Auto) [place] % (Auto) Eos % (Auto) Baso % (Auto) Neut # (Auto) Lymph # (Auto) [place] # (Auto) Eos # (Auto) Baso # (Auto) Neutrophils % (Manual) Lymphocytes % (Manual) Monocytes % (Manual) Eosinophils % (Manual) Platelet Estimate Polychromasia Macrocytosis (manual) Sodium Potassium Chloride Carbon Dioxide Anion Gap BUN Creatinine Est GFR ( Amer) Est GFR (Non-Af Amer) POC Glucose (mg/dL) 367 H Random Glucose Calcium Phosphorus 5.0 H Magnesium Total Bilirubin AST ALT Alkaline Phosphatase Total Protein Albumin Globulin Albumin/Globulin Ratio Urine Color Yellow Urine Clarity Clear Urine pH 5.0 Ur Specific [place] 1.025 Urine Protein Negative Urine Glucose (UA) 3+ H Urine Ketones 1+ H Urine Blood Negative Urine Nitrate Negative Urine Bilirubin Negative Urine Urobilinogen Normal Ur Leukocyte Esterase Neg Urine WBC (Auto) < 1 Urine RBC (Auto) < 1 01/03/18 01/03/18 01/03/18 02:12 07:58 10:11 WBC RBC Hgb Hct MCV MCH MCHC RDW Plt Count MPV Neut % (Auto) Lymph % (Auto) [place] % (Auto) Eos % (Auto) Baso % (Auto) Neut # (Auto) Lymph # (Auto) [place] # (Auto) Eos # (Auto) Baso # (Auto) Neutrophils % (Manual) Lymphocytes % (Manual) Monocytes % (Manual) Eosinophils % (Manual) Platelet Estimate Polychromasia Macrocytosis (manual) Sodium Potassium Chloride Carbon Dioxide Anion Gap BUN Creatinine Est GFR ( Amer) Est GFR (Non-Af Amer) POC Glucose (mg/dL) 386 H 433 H* 429 H* Random Glucose Calcium Phosphorus Magnesium Total Bilirubin AST ALT Alkaline Phosphatase Total Protein Albumin Globulin Albumin/Globulin Ratio Urine Color Urine Clarity Urine pH Ur Specific [place] Urine Protein Urine Glucose (UA) Urine Ketones Urine Blood Urine Nitrate Urine Bilirubin Urine Urobilinogen Ur Leukocyte Esterase Urine WBC (Auto) Urine RBC (Auto) 01/03/18 01/03/18 01/03/18 11:09 11:09 14:01 WBC 5.4 RBC 2.42 L Hgb 9.9 L Hct 28.6 L MCV 118.4 H D MCH 41.0 H MCHC 34.6 RDW 14.5 Plt Count 118 L MPV 8.5 Neut % (Auto) 70.6 Lymph % (Auto) 8.9 L [place] % (Auto) 18.6 H Eos % (Auto) 1.2 Baso % (Auto) 0.7 Neut # (Auto) 3.8 Lymph # (Auto) 0.5 L [place] # (Auto) 1.0 H Eos # (Auto) 0.1 Baso # (Auto) 0.0 Neutrophils % (Manual) 77 H Lymphocytes % (Manual) 11 L Monocytes % (Manual) 11 H Eosinophils % (Manual) 1 Platelet Estimate Slightly decreased L Polychromasia Slight Macrocytosis (manual) Slight Sodium 134 Potassium 3.6 Chloride 100 Carbon Dioxide 23 Anion Gap 15 BUN 15 Creatinine 0.6 L Est GFR ( Amer) > 60 Est GFR (Non-Af Amer) > 60 POC Glucose (mg/dL) 463 H* Random Glucose 394 H Calcium 9.6 Phosphorus Magnesium 1.5 L Total Bilirubin AST ALT Alkaline Phosphatase Total Protein Albumin Globulin Albumin/Globulin Ratio Urine Color Urine Clarity Urine pH Ur Specific [place] Urine Protein Urine Glucose (UA) Urine Ketones Urine Blood Urine Nitrate Urine Bilirubin Urine Urobilinogen Ur Leukocyte Esterase Urine WBC (Auto) Urine RBC (Auto) 01/03/18 16:45 WBC RBC Hgb Hct MCV MCH MCHC RDW Plt Count MPV Neut % (Auto) Lymph % (Auto) [place] % (Auto) Eos % (Auto) Baso % (Auto) Neut # (Auto) Lymph # (Auto) [place] # (Auto) Eos # (Auto) Baso # (Auto) Neutrophils % (Manual) Lymphocytes % (Manual) Monocytes % (Manual) Eosinophils % (Manual) Platelet Estimate Polychromasia Macrocytosis (manual) Sodium Potassium Chloride Carbon Dioxide Anion Gap BUN Creatinine Est GFR ( Amer) Est GFR (Non-Af Amer) POC Glucose (mg/dL) 217 H Random Glucose Calcium Phosphorus Magnesium Total Bilirubin AST ALT Alkaline Phosphatase Total Protein Albumin Globulin Albumin/Globulin Ratio Urine Color Urine Clarity Urine pH Ur Specific [place] Urine Protein Urine Glucose (UA) Urine Ketones Urine Blood Urine Nitrate Urine Bilirubin Urine Urobilinogen Ur Leukocyte Esterase Urine WBC (Auto) Urine RBC (Auto)
--- NOTE | 2018-01-03 19:48 | CON ---
DATE: 01/03/2018 ENDOCRINOLOGY CONSULT LOCATION: Room 350. HISTORY OF PRESENT ILLNESS: This is a 57-year-old male with known history of type II insulin requiring diabetes who was recently discharged from this hospital and presenting once again with marked hyperglycemic accelerations as noted thereof. He was apparently paced only on oral hypoglycemic therapy for outpatient diabetic management and continued on his triple oral hypoglycemic therapy as given, although his glucose values remain quite elevated as noted. PAST MEDICAL HISTORY: As mentioned above, history of type II insulin-requiring diabetes, who was apparently supposed to be discharge with a combination of NovoLog and Lantus therapy which was apparently not given or taken by the patient. He was admitted recently here with diabetic ketoacidosis and dehydration and clearly his insulin requiring at this point in time. History of diabetic retinopathy and polyneuropathy with diabetic nephropathy with apparently normal renal function at this time. History of coronary artery disease with previous coronary artery bypass graft surgery with underlying peripheral arterial disease and vasculopathy. PLAN OF MANAGEMENT: We will modify once again his current oral hypoglycemic therapy given in combination as it clearly is insulin requiring with marked hyperglycemic accelerations at this time and glucose values over 500 mg/dL which will make him better resistant to his own insulin usage at this point in time. We will resume his basal and bolus insulin regimen with NovoLog to be given a 12 units subcu t.i.d. before meals as prescribed today at dinner time. We will also add Lantus given as basal insulin with 30 units subcu at bedtime daily as given. We will obtain serial chemistries and supplement accordingly as needed. We will obtain a hemoglobin A1c to confirm his prior poor glycemic control and baseline thyroid function studies will be ordered. We will obtain a serum CPAP prior to fully and accurately need for insulin therapy and/or oral hypoglycemic therapy and/or premixed and basal insulin therapy as given. We will continue the vigorous IV hydration and increase to normal saline to 100 mL per hour as we expect increased osmatic diuresis thereof from the supervening hyperglycemic values. We will obtain serial chemistry and supplement accordingly as need. We will reinforce diabetic education to include insulin self administration with the diabetic nurse office. We will follow. Calli Houston MD
[2018-01-03] MEDS ORDERED: (Lantus) Insulin Glargine, Recombinant SC SCH (22:00)
[2018-01-04] MEDS: Sodium Chloride 0.9% 1,000 ML IV SCH ×3 (00:30→13:36)
[2018-01-04 07:30] LABS: EOS # 0.1 K/uL (0.0-0.7); HEMOGLOBIN 9.9 g/dL (12.0-18.0)
[2018-01-04 07:52] LABS: ALBUMIN 2.9 g/dL (3.5-5.0); ALT/SGPT 26 U/L (21-72); AST/SGOT 33 U/L (17-59); BLOOD UREA NITROGEN 11 mg/dL (9-20); CALCIUM 9.3 mg/dl (8.6-10.4); GFR NON-AFRICAN AMERICAN > 60
[2018-01-04] MEDS: (Novolog) Insulin Aspart, Recombinant 100 u/ml 10 ml vial SC SCH ×4 (08:08→13:35)
[2018-01-04 08:31] LABS: BASO % 0.6 % (0.0-2.0); EOS % 1.6 % (0.0-4.0); LYMPH # 0.8 K/uL (1.0-4.3); MEAN CELL VOLUME 117.5 fL (80.0-94.0); MEAN CORPUSCULAR HEMOGLOBIN 39.7 pg (27.0-31.0); MEAN CORPUSCULAR HGB CONC 33.8 g/dL (33.0-37.0); MEAN PLATELET VOLUME 8.7 fL (7.2-11.7); MONO # 1.2 K/uL (0.0-0.8); MONO % 18.2 % (0.0-10.0); NEUT # 4.3 K/uL (1.8-7.0); NEUT % 66.6 % (50.0-75.0); NRBC % 0.1 % (0.0-2.0); RBC 2.5 Mil/uL (4.40-5.90); RED CELL DISTRIBUTION WIDTH 14.2 % (11.5-14.5); WHITE BLOOD COUNT 6.4 K/uL (4.8-10.8)
--- NOTE | 2018-01-04 11:40 | CP.PCM.PN ---
Subjective - Date & Time of Evaluation Date of Evaluation: 01/04/18 Time of Evaluation: 08:30 - Subjective Subjective: clinically same Objective - Vital Signs/Intake and Output Vital Signs (last 24 hours): Temp Pulse Resp BP Pulse Ox 99.2 F 111 H 20 135/74 95 01/04/18 07:44 01/04/18 07:44 01/04/18 07:44 01/04/18 10:26 01/04/18 07:44 Intake and Output: 01/04/18 01/04/18 06:59 18:59 Intake Total 800 1040 Output Total 400 Balance 800 640 - Medications Medications: Current Medications Amlodipine Besylate (Norvasc) 10 mg PO DAILY [facility] Last Admin: 01/04/18 10:26 Dose: 10 mg Clopidogrel Bisulfate (Plavix) 75 mg PO DAILY [facility] Last Admin: 01/04/18 10:26 Dose: 75 mg Dextrose (Dextrose 50% Inj) 0 ml IV STAT PRN; Protocol PRN Reason: Hypoglycemia Protocol Dextrose (Glutose 15) 0 gm PO ONCE PRN; Protocol PRN Reason: Hypoglycemia Protocol Ergocalciferol (Drisdol 50,000 Intl Units Cap) 1 cap PO QWK [facility] Glucagon (Glucagen Diagnostic Kit) 0 mg IM STAT PRN; Protocol PRN Reason: Hypoglycemia Protocol Dextrose (Dextrose 5% In Water 1000 Ml) 1,000 mls @ 0 mls/hr IV .Q0M PRN; Protocol PRN Reason: Hypoglycemia Protocol Sodium Chloride (Sodium Chloride 0.9%) 1,000 mls @ 100 mls/hr IV .Q10H [facility] Last Admin: 01/04/18 05:55 Dose: 100 mls/hr Insulin Aspart (Novolog) 12 unit SC AC [facility] Last Admin: 01/04/18 08:11 Dose: 12 units Insulin Aspart (Novolog) 0 unit SC ACHS [facility] Last Admin: 01/04/18 08:08 Dose: Not Given Insulin Glargine (Lantus) 30 unit SC HS [facility] Last Admin: 01/03/18 21:31 Dose: 30 units Lisinopril (Zestril) 20 mg PO DAILY [facility] Last Admin: 01/04/18 10:26 Dose: 20 mg Metformin HCl (Glucophage) 1,000 mg PO BIDCC [facility] Last Admin: 01/04/18 08:11 Dose: 1,000 mg Metoprolol Tartrate (Lopressor) 25 mg PO BID [facility] Last Admin: 01/04/18 10:26 Dose: 25 mg Rosuvastatin Calcium (Crestor) 5 mg PO HS [facility] Last Admin: 01/03/18 21:31 Dose: 5 mg Sitagliptin Phosphate (Januvia) 100 mg PO DAILY [facility] Last Admin: 01/04/18 10:26 Dose: 100 mg - Labs Labs: 01/04/18 07:11 01/04/18 07:11 - Constitutional Appears: Well - Head Exam Head Exam: ATRAUMATIC, NORMAL INSPECTION, NORMOCEPHALIC - Eye Exam Eye Exam: EOMI, Normal appearance, PERRL Pupil Exam: NORMAL ACCOMODATION, PERRL - ENT Exam ENT Exam: Mucous Membranes Moist, Normal Exam - Neck Exam Neck Exam: Full ROM, Normal Inspection. absent: Lymphadenopathy - Respiratory Exam Respiratory Exam: Decreased Breath Sounds - Cardiovascular Exam Cardiovascular Exam: REGULAR RHYTHM, +S1, +S2 - GI/Abdominal Exam GI & Abdominal Exam: Soft, Diminished Bowel Sounds - Rectal Exam Rectal Exam: Deferred
[2018-01-04 16:47] VITALS: BP 118/70; PULSE 88; TEMP 98.3; O2SAT 99
--- NOTE | 2018-01-04 17:36 | CP.PCM.PN ---
Subjective - Date & Time of Evaluation Date of Evaluation: 01/04/18 Time of Evaluation: 17:36 - Subjective Subjective: alert and orientedx3, denies ay acute weakness or distress, blood sugars improving. Objective - Vital Signs/Intake and Output Vital Signs (last 24 hours): Temp Pulse Resp BP Pulse Ox 98.3 F 88 20 118/70 99 01/04/18 15:10 01/04/18 15:10 01/04/18 15:10 01/04/18 15:10 01/04/18 15:10 Intake and Output: 01/04/18 01/04/18 06:59 18:59 Intake Total 800 2340 Output Total 400 Balance 800 1940 - Medications Medications: Current Medications Amlodipine Besylate (Norvasc) 10 mg PO DAILY [facility] Last Admin: 01/04/18 10:26 Dose: 10 mg Clopidogrel Bisulfate (Plavix) 75 mg PO DAILY [facility] Last Admin: 01/04/18 10:26 Dose: 75 mg Dextrose (Dextrose 50% Inj) 0 ml IV STAT PRN; Protocol PRN Reason: Hypoglycemia Protocol Dextrose (Glutose 15) 0 gm PO ONCE PRN; Protocol PRN Reason: Hypoglycemia Protocol Ergocalciferol (Drisdol 50,000 Intl Units Cap) 1 cap PO QWK [facility] Glucagon (Glucagen Diagnostic Kit) 0 mg IM STAT PRN; Protocol PRN Reason: Hypoglycemia Protocol Dextrose (Dextrose 5% In Water 1000 Ml) 1,000 mls @ 0 mls/hr IV .Q0M PRN; Protocol PRN Reason: Hypoglycemia Protocol Sodium Chloride (Sodium Chloride 0.9%) 1,000 mls @ 100 mls/hr IV .Q10H [facility] Last Admin: 01/04/18 13:36 Dose: Not Given Insulin Aspart (Novolog) 12 unit SC AC [facility] Last Admin: 01/04/18 13:35 Dose: Not Given Insulin Aspart (Novolog) 0 unit SC ACHS [facility] Last Admin: 01/04/18 13:35 Dose: Not Given Insulin Glargine (Lantus) 30 unit SC HS [facility] Last Admin: 01/03/18 21:31 Dose: 30 units Lisinopril (Zestril) 20 mg PO DAILY [facility] Last Admin: 01/04/18 10:26 Dose: 20 mg Metformin HCl (Glucophage) 1,000 mg PO BIDCC [facility] Last Admin: 01/04/18 08:11 Dose: 1,000 mg Metoprolol Tartrate (Lopressor) 25 mg PO BID [facility] Last Admin: 01/04/18 10:26 Dose: 25 mg Rosuvastatin Calcium (Crestor) 5 mg PO HS [facility] Last Admin: 01/03/18 21:31 Dose: 5 mg Sitagliptin Phosphate (Januvia) 100 mg PO DAILY [facility] Last Admin: 01/04/18 10:26 Dose: 100 mg - Labs Labs: 01/04/18 07:11 01/04/18 07:11 Assessment and Plan - Assessment and Plan (Free Text) Assessment: 57 year old male admitted with uncontrolled diabetes, seen and examined. Alert and orientedx3, denies headache or chest pains. Blood sugars improving, discussed with DR Houston and DR Marika Du, plan to discharge home on lantus hs and novolog before meals. RX given to the patients. Advised the to follow up with DR Houston but she will go to her PMD tomorrow to follow up.
--- NOTE | 2018-01-04 20:42 | PN ---
DATE: 01/04/2018 ENDOCRINOLOGY FOLLOWUP NOTE LOCATION: Room 350. This is a 57-year-old male with recent uncontrolled type 2 insulin-requiring diabetes, presenting here with marked hyperglycemic accelerations and dehydration and is now improved clinically and metabolically as noted thereof. His glycemic levels today have ranged from 125 to 270 mg/dL. It was 120 at bedtime last night. The chemistries showed a BUN of 11, sodium 136, potassium 3.7, chloride 102, CO2 of 22, glucose 196, and creatinine 0.6. So at this time, we will continue the same basal and bolus insulin regimen as ordered. We will continue the NovoLog given as 12 units t.i.d. before meals as ordered. We will continue also the Lantus given as 30 units subcu at bedtime daily as given. We will continue also the oral hypoglycemic therapy with Januvia at 100 mg daily and metformin at 1 g b.i.d. as ordered. The patient definitely needs insulin therapy also per outpatient diabetic management to optimize metabolic control especially with secondary pancreatic failure as observed clearly with his two admissions this past month. We will follow and advise accordingly. Calli Houston MD
[2018-01-09] MEDS ORDERED: Ergocalciferol 50,000 Intl Units Cap PO SCH (10:00)
== END 2018-01-04 17:36 | disposition home or self-care (01) | DRG 639 ==
LOC: C.ER 18:59 → C.9E 21:44 → C.3T 22:31
PROVIDERS: ADMIT Internal Medicine Nephrology; ATTEND Internal Medicine Nephrology
DX: E11.65 Type 2 diabetes mellitus with hyperglycemia (principal); E11.21 Type 2 diabetes mellitus with diabetic nephropathy; E86.0 Dehydration; E11.22 Type 2 diabetes mellitus with diabetic chronic kidney disease; E11.319 Type 2 diabetes mellitus with unspecified diabetic retinopathy without macular edema; E11.51 Type 2 diabetes mellitus with diabetic peripheral angiopathy without gangrene; I12.9 Hypertensive chronic kidney disease with stage 1 through stage 4 chronic kidney disease, or unspecified chronic kidney disease; I25.10 Atherosclerotic heart disease of native coronary artery without angina pectoris; N18.9 Chronic kidney disease, unspecified; E78.5 Hyperlipidemia, unspecified; E78.00 Pure hypercholesterolemia, unspecified; F17.210 Nicotine dependence, cigarettes, uncomplicated; Z79.4 Long term (current) use of insulin; Z95.1 Presence of aortocoronary bypass graft; Z91.14 Patient's other noncompliance with medication regimen